=== PATIENT | male | born 1935 | race Caucasian/White ===

== ENCOUNTER 2017-12-23 19:21 | Observation (INO) | payer MEDICARE, OTHER ==
[2017-12-23 20:07] LABS: #Eosinphils 0.3 thou/uL (0.0-0.7); #Lymphocytes 1.8 thou/uL (1.20-3.40); #Monocytes 0.8 thou/uL (0.11-0.59); #Neutrophils 5.2 thou/uL (1.40-6.50); %Basophils 0.5 % (0.0-1.0); %Eosinophils 3.6 % (0.0-10.0); %Lymphocytes 22.5 % (21.0-51.0); %Monocytes 9.4 % (0.0-10.0); %Neutrophils 64.1 % (42.0-75.0); Mean Corpuscular HGB CONC 34.2 g/dL (32.0-36.0); Mean Corpuscular Hemoglobin 30.6 pg (27.0-31.0); Mean Corpuscular Volume 89.4 fl (80.0-94.0); Mean Platelet Volume 6.9 fL (7.4-10.4); Platelet Count 172 thou/uL (130-400); RBC Distribution Width 12.3 % (11.5-14.5); Red Blood Cell (RBC) Count 4.59 mill/uL (4.70-6.10); White Blood Cell (WBC) Count 8.1 thou/uL (4.8-10.8)
[2017-12-23 20:35] LABS: Anion Gap 13 mmol/L (10-20); BUN (Urea Nitrogen) 10 mg/dL (8.4-25.7); Calc. Creatinine Clearance 0 mL/min (70-130); Calcium 9.1 mg/dL (7.8-10.44); Carbon Dioxide 25 mmol/L (23-31); Chloride 100 mmol/L (98-107); Estimated GFR-MDRD 74; Glucose 114 mg/dL (83-110); Potassium 3.6 mmol/L (3.5-5.1); Sodium 134 mmol/L (136-145)
[2017-12-23 20:42] LABS: CKMB 1.3 ng/mL (0-6.6); Troponin I Less than 0.010 ng/mL (< 0.028)
[2017-12-23 22:18] LABS: Bilirubin Negative (Negative); Blood, Urine Negative (Negative); Clarity CLEAR (Clear); Glucose, Urine (Dipstick) Negative (Negative); Leukocyte Negative (Negative); Nitrite Negative (Negative); Protein, Urine (Dipstick) Negative (Neg-Trace); Specific Gravity, Urine 1.008 (1.002-1.036); Urobilinogen 0.2 mg/dL (0.2-1.0)
[2017-12-23 23:44] LABS: Troponin I Less than 0.010 ng/mL (< 0.028)
[2017-12-24 02:00] VITALS: BMI 20.8
[2017-12-24] MEDS ORDERED: Bisacodyl 5 MG TAB PO PRN (02:00)
[2017-12-24] MEDS ORDERED: Acetaminophen 325 MG TAB PO PRN (02:00)
[2017-12-24] MEDS ORDERED: Sodium Chloride 0.9% 1,000 ML IV SCH (02:15)
[2017-12-24 02:28] LABS: Troponin I Less than 0.010 ng/mL (< 0.028)
--- NOTE | 2017-12-24 02:34 | HP ---
PRIMARY CARE PROVIDER: Unknown. CHIEF COMPLAINT: Lightheadedness. HISTORY OF PRESENT ILLNESS: Mr. Brothers is a pleasant 82-year-old gentleman who was seen at [facility] on 12/24/2017. He reports that over the last couple of days, he has been feeling lightheaded. He reports that it is mainly when he is trying to walk. He feels like he is about to fall. He feels dizzy. He denies an y chest pain. He denies any nausea, vomiting, diarrhea, or abdominal pain. He used to be on thyroid replacement therapy, but stopped taking that medication for a few weeks because of cost factor. REVIEW OF SYSTEMS: All other systems reviewed and found to be negative. PAST MEDICAL HISTORY: Hypothyroidism; hypervitaminosis D; osteoporosis; suspected Alzheimer disease; bradycardia, status post permanent pacemaker; hypertension; and dyslipidemia. PAST SURGICAL HISTORY: Permanent pacemaker placement. FAMILY HISTORY: Father at age 75 of an accident. Mother of complications of multiple scle rosis in her 60s. CODE STATUS: I discussed his code status. He is FULL CODE. Surrogate decision maker is his friend, Jagdish Lindsay, in [place]. SOCIAL HISTORY: He denies tobacco use, alcohol use, or recreational drug use. 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 ALLERGIES: No known drug allergies. CURRENT MEDICATIONS: He has not been taking his thyroid replacement therapy for several weeks. He r eports that he does not take any other medications at home. PHYSICAL EXAMINATION: GENERAL: Mr. Brothers is awake and alert, not in acute distress. VITAL SIGNS: Blood pressure is 159/90, pulse is 63. He is breathing at a rate of 14 and saturating 98% on room air. He is afebrile. EYES: No scleral icterus. No conjunctival pallor. ENT: Dry mucosal membranes. No oropharyngeal erythema or exudates. NECK: Supple, nontender, normal range of movement. Trachea is midline. RESPIRATORY: Accessory muscles of breathing are not active. Chest wall movements are symmetric bila terally. LUNGS: Clear to auscultation without wheeze, rhonchi, or crepitations. CARDIOVASCULAR: S1 and S2 are heard, regular. Peripheral pulses palpable. No carotid bruit. No pe ricardial rub. ABDOMEN: Soft, nontender. Bowel sounds heard. No hepatomegaly, no splenomegaly. MUSCULOSKELETAL: Power is 5/5 in all 4 extremities. SKIN: No rashes or subcutaneous nodules. LYMPHATIC: No cervical lymphadenopathy. PSYCHIATRIC: Normal mood, normal affect. The patient is oriented to person, place, and time. LABORATORY DATA: Mr. Brothers's labs and investigations were reviewed. Electrocardiogram showed atri al paced rhythm, no ST changes to suggest an acute coronary syndrome. He has normal urinalysis, norm al white count, normal hemoglobin, normal platelet count, decreased sodium of 134, normal potassium, normal creatinine, normal troponin I x2, and a normal TSH. ASSESSMENT AND PLAN: Mr. Brothers is a pleasant 82-year-old gentleman who was seen at [facility] on 12/24/2017. His problem list includes: 1. Presyncope: Etiology is unclear. We will check CT brain to rule out any intracranial causes. W e will monitor him on telemetry. We will also check orthostatic vitals. We will have his permanent pacemaker interrogated to rule out any arrhythmias. 2. Hypothyroidism: We will resume his thyroid medication once dose is clarified. The patient repor ts that he has been noncompliant for several weeks. He does have a normal TSH at this time. 3. Hypertension: Monitor vital signs, titrate antihypertensives as needed. Resume home medications once clarified. 4. Dyslipidemia: He has a history of dyslipidemia. However, he reportedly had myalgias with statin s. Dyslipidemia to be managed as outpatient. LEVEL OF RISK: Moderate. LEVEL OF COMPLEXITY: Moderate.
[2017-12-24 04:26] LABS: #Basophils 0.1 thou/uL (0.0-0.2); #Eosinphils 0.5 thou/uL (0.0-0.7); #Lymphocytes 2.7 thou/uL (1.20-3.40); #Monocytes 0.9 thou/uL (0.11-0.59); #Neutrophils 4.9 thou/uL (1.40-6.50); %Basophils 0.6 % (0.0-1.0); %Eosinophils 5.4 % (0.0-10.0); %Lymphocytes 29.5 % (21.0-51.0); %Neutrophils 54.4 % (42.0-75.0); Hemoglobin 14.5 g/dL (14.0-18.0); Mean Corpuscular HGB CONC 33.9 g/dL (32.0-36.0); Mean Corpuscular Hemoglobin 30.5 pg (27.0-31.0); Mean Corpuscular Volume 89.7 fl (80.0-94.0); Mean Platelet Volume 7.3 fL (7.4-10.4); Platelet Count 178 thou/uL (130-400); RBC Distribution Width 12.3 % (11.5-14.5); Red Blood Cell (RBC) Count 4.76 mill/uL (4.70-6.10); White Blood Cell (WBC) Count 9.1 thou/uL (4.8-10.8)
[2017-12-24 04:29] LABS: Anion Gap 9 mmol/L (10-20); BUN (Urea Nitrogen) 9 mg/dL (8.4-25.7); Calc. Creatinine Clearance 65 mL/min (70-130); Calcium 9.2 mg/dL (7.8-10.44); Carbon Dioxide 28 mmol/L (23-31); Chloride 103 mmol/L (98-107); Estimated GFR-MDRD 81; Glucose 91 mg/dL (83-110); Potassium 3.7 mmol/L (3.5-5.1); Sodium 136 mmol/L (136-145)
[2017-12-24] MEDS ORDERED: Enoxaparin Sodium 40 MG/0.4 ML SYRINGE SC SCH (09:00)
[2017-12-24] MEDS ORDERED: Prevnar 13-Val Conj/PF 0.5 ML SYRINGE IM ONE (09:00)
--- NOTE | 2017-12-24 10:08 | CT ---
CT OF THE BRAIN WITHOUT CONTRAST: COMPARISON: 04/20/16. HISTORY: Dizziness and unsteadiness. Presyncope. TECHNIQUE: Multiple contiguous axial images were obtained in a CT of the brain without contrast. FINDINGS: There are a few scattered hypodensities in the subcortical and periventricular white matter, likely s econdary to small-vessel ischemic disease. No large confluent infarction is seen. There is no evide nce of hydrocephalus, intracranial hemorrhage, or extraaxial fluid collection. The calvarium and overlying soft tissues are unremarkable. The visualized paranasal sinuses and mast oid air cells are well aerated. IMPRESSION: No evidence of acute intracranial abnormality. POS: [facility]
--- NOTE | 2017-12-24 12:15 | PDOC.EVN ---
Event Note - Event Note Event Note: Iris seen and examined. Admitted earlier this morning for Near syncope. Awaiting AICD interrogation. Currently feels fine with no complaints. Will continue to follow.
[2017-12-24 16:52] VITALS: BP 121/70; TEMP 98.3
--- NOTE | 2017-12-28 19:16 | DIS ---
DATE OF ADMISSION: 12/24/2017 DATE OF DISCHARGE: 12/24/2017 DISCHARGE DIAGNOSIS: Orthostatic hypotension, near syncope. HISTORY OF PRESENT ILLNESS/HOSPITAL COURSE: Mr. Zev Lyons is an 82-year-old male with a past m edical history of hypothyroidism, hypervitaminosis D, osteoporosis, Alzheimer's dementia, bradycardia , status post pacemaker placement, hypertension, and dyslipidemia, who presented to the emergency amelia from his assisted living facility with complaints of being lightheaded and difficulty trying to wal k due to the lightheadedness. He reports almost falling down, but he denied chest pain, nausea, vomi ting, diarrhea, abdominal pain. He used to be on hypothyroidism medication, but stopped taking the m edication a few weeks before due to cost prohibitive. At emergency room, he was found to be orthosta tic and started on IV fluids. While in hospital, his O2 sat was rechecked and was negative. His pac emaker was interrogated with no abnormalities found. He seemed to be almost back to his baseline and PT, OT was called to evaluate the patient and we will arrange for outpatient therapy sessions. Ther e were some concerns about his possible home living conditions. I believe the patient take care of h imself so calls were made by the manager case management to his facility and the whole living situation was expl ained to us. It was therefore deemed to be inpatient as a benefit to see if he can continue to live by himself to give him a trial of independent living and if he fails this, then he might need to be p laced in a long-term facility for proper assessment. The patient was discharged without incident. DISCHARGE MEDICATIONS: Hydroxyzine 10 mg 4 times daily as needed for itching, loratadine 10 mg daily , levothyroxine sodium 50 mcg daily, Carvedilol 12.5 mg oral twice a day, amlodipine 5 mg daily, and amiodarone 200 mg twice a day. PHYSICAL EXAMINATION: GENERAL: He was examined on the same day as discharge for details, see today's progress notes: WBC 9.1, hemoglobin 14.5, platelet count is 178. Sodium 136, potassium 3.7, chloride 103, carbon dioxide 28, anion gap 9, BUN 9, creatinine 0.9, glucose 91, calcium 9.2. IMAGING: Brain CT without contrast showed no evidence of intracranial abnormality. CONSULTS: None. CONDITION AT DISCHARGE: Stable and improved. PROCEDURES: None. DIET: Heart healthy. CARE. Goal to follow up with his primary care physician within 1 week of discharge. ACTIVITY: To resume as tolerated and as directed by PT/OT. Discharge time 65 minutes including chart review and documentation.
== END 2017-12-24 18:09 | disposition home health service (06) ==
LOC: ERS 19:21 → 2SW 21:55
PROVIDERS: ADMIT Internal Medicine; ATTEND Internal Medicine
DX: I95.1 Orthostatic hypotension (principal); E03.9 Hypothyroidism, unspecified; M81.0 Age-related osteoporosis without current pathological fracture; E78.5 Hyperlipidemia, unspecified; I10 Essential (primary) hypertension; Z79.899 Other long term (current) drug therapy
CPT/HCPCS: 70450; 80048 ×2; 81003; 82553; 84443; 84484 ×3; 85025 ×2; 93005; 96360; 96361; 96372; 97139 ×2; 99285; G0378; G8978; G8979; G8980; 36415; J1650

== ENCOUNTER 2017-12-27 14:04 | Emergency (ER) | payer MEDICARE ==
[2017-12-27] MEDS ORDERED: Acetaminophen 500 MG TAB ONE (14:29)
[2017-12-27 14:30] LABS: #Basophils 0.1 thou/uL (0.0-0.2); #Eosinphils 0.3 thou/uL (0.0-0.7); #Lymphocytes 1.6 thou/uL (1.20-3.40); #Monocytes 0.9 thou/uL (0.11-0.59); #Neutrophils 4.9 thou/uL (1.40-6.50); %Basophils 0.7 % (0.0-1.0); %Eosinophils 3.3 % (0.0-10.0); %Lymphocytes 20.5 % (21.0-51.0); %Monocytes 11.6 % (0.0-10.0); %Neutrophils 63.9 % (42.0-75.0); Hemoglobin 14.9 g/dL (14.0-18.0); Mean Corpuscular HGB CONC 33.7 g/dL (32.0-36.0); Mean Corpuscular Hemoglobin 30.3 pg (27.0-31.0); Mean Corpuscular Volume 89.8 fl (80.0-94.0); Mean Platelet Volume 6.4 fL (7.4-10.4); Platelet Count 181 thou/uL (130-400); RBC Distribution Width 12.3 % (11.5-14.5); Red Blood Cell (RBC) Count 4.94 mill/uL (4.70-6.10); White Blood Cell (WBC) Count 7.7 thou/uL (4.8-10.8)
[2017-12-27 14:56] LABS: ALT (SGPT) 13 U/L (8-55); AST (SGOT) 13 U/L (5-34); Albumin 4.4 g/dL (3.4-4.8); Alkaline Phosphatase 64 U/L (40-150); Anion Gap 11 mmol/L (10-20); BUN (Urea Nitrogen) 14 mg/dL (8.4-25.7); Bilirubin, Total 1.2 mg/dL (0.2-1.2); CK (CPK) 77 U/L (30-200); Calc. Creatinine Clearance 0 mL/min (70-130); Calcium 9.5 mg/dL (7.8-10.44); Carbon Dioxide 28 mmol/L (23-31); Chloride 101 mmol/L (98-107); Estimated GFR-MDRD 61; Globulin 2.4 g/dL (2.4-3.5); Glucose 73 mg/dL (83-110); Potassium 3.8 mmol/L (3.5-5.1); Protein, Total 6.8 g/dL (5.8-8.1); Sodium 136 mmol/L (136-145)
[2017-12-27 15:01] LABS: CKMB 2.7 ng/mL (0-6.6); Troponin I Less than 0.010 ng/mL (< 0.028)
--- NOTE | 2017-12-27 15:08 | CT ---
CT BRAIN WITHOUT CONTRAST: HISTORY: Weakness, dizziness. FINDINGS: Comparison is made with the exam of 12/24/17. Changes of cortical atrophy and chronic small-vessel ischemic disease are again seen. The ventricula r size is stable and the basilar cisterns patent. No evidence of acute infarct, hemorrhage, midline shift, or abnormal extraaxial fluid collections noted. The bony calvarium is intact. There is mucos al disease in the paranasal sinuses. IMPRESSION: Stable exam. No CT evidence of acute intracranial process. POS: [facility]
--- NOTE | 2017-12-27 15:10 | RAD ---
AP PELVIS RADIOGRAPH: DATE: 12/27/17. HISTORY: Weakness. FINDINGS: There is osteopenia. Degenerative changes are seen in the lower lumbar spine. No fracture is seen. There is no dislocation or other osseous abnormality appreciated. IMPRESSION: No acute osseous abnormality appreciated. POS: [facility]
[2017-12-27 15:18] LABS: Bilirubin Negative (Negative); Blood, Urine Negative (Negative); Clarity CLEAR (Clear); Glucose, Urine (Dipstick) Negative (Negative); Leukocyte Negative (Negative); Nitrite Negative (Negative); Protein, Urine (Dipstick) Negative (Neg-Trace); Specific Gravity, Urine 1.012 (1.002-1.036); pH, Urine 6.5 (5.0-9.0)
== END 2017-12-27 17:15 | disposition home or self-care (01) ==
LOC: ERS 14:04
DX: R53.1 Weakness (principal); E05.90 Thyrotoxicosis, unspecified without thyrotoxic crisis or storm; I48.91 Unspecified atrial fibrillation
CPT/HCPCS: 36415; 70450; 72170; 80053; 81003; 82553; 83880; 84484; 85025; 96360

== ENCOUNTER 2017-12-28 09:26 | Emergency (ER) | payer MEDICARE | END 2017-12-28 14:51 | LOC: ERS 09:26 | DX: F03.90 Unspecified dementia, unspecified severity, without behavioral disturbance, psychotic disturbance, mood disturbance, and anxiety (principal); E05.90 Thyrotoxicosis, unspecified without thyrotoxic crisis or storm | CPT/HCPCS: 93005 ==

== ENCOUNTER 2018-01-16 18:55 | Emergency (ER) | payer MEDICARE ==
[2018-01-16 19:48] LABS: Bilirubin Negative (Negative); Blood, Urine Trace (Negative); Clarity CLEAR (Clear); Glucose, Urine (Dipstick) Negative (Negative); Leukocyte Negative (Negative); Nitrite Negative (Negative); Protein, Urine (Dipstick) Negative (Neg-Trace); Specific Gravity, Urine 1.006 (1.002-1.036)
[2018-01-16 19:50] LABS: Bacteria/HPF None Seen HPF (None Seen); Hyaline Casts/LPF 0-3 HYALINE CAST LPF (0-3 Hyaline); RBC/HPF 0-3 HPF (0-3); Squamous Epithelial None Seen HPF (0-3); WBC/HPF None Seen HPF (0-3)
[2018-01-16 20:20] LABS: #Basophils 0.1 thou/uL (0.0-0.2); #Eosinphils 0.4 thou/uL (0.0-0.7); #Lymphocytes 2.3 thou/uL (1.20-3.40); #Monocytes 1.1 thou/uL (0.11-0.59); #Neutrophils 6.6 thou/uL (1.40-6.50); %Basophils 0.8 % (0.0-1.0); %Eosinophils 3.7 % (0.0-10.0); %Lymphocytes 21.7 % (21.0-51.0); %Monocytes 10.7 % (0.0-10.0); %Neutrophils 63.1 % (42.0-75.0); Hemoglobin 14.9 g/dL (14.0-18.0); Mean Corpuscular HGB CONC 34.1 g/dL (32.0-36.0); Mean Corpuscular Hemoglobin 30.7 pg (27.0-31.0); Mean Corpuscular Volume 90.1 fL (78.0-98.0); Mean Platelet Volume 6.7 fL (7.4-10.4); Platelet Count 188 thou/uL (130-400); RBC Distribution Width 12.1 % (11.5-14.5); Red Blood Cell (RBC) Count 4.83 mill/uL (4.70-6.10); White Blood Cell (WBC) Count 10.4 thou/uL (4.8-10.8)
[2018-01-16] MEDS ORDERED: Meclizine HCl 25 MG TAB ONE (20:26)
[2018-01-16 20:45] LABS: CKMB 1.7 ng/mL (0-6.6); Troponin I Less than 0.010 ng/mL (< 0.028)
== END 2018-01-16 22:00 | disposition home or self-care (01) ==
LOC: ERS 18:55
DX: R42 Dizziness and giddiness (principal); I48.91 Unspecified atrial fibrillation; E05.90 Thyrotoxicosis, unspecified without thyrotoxic crisis or storm
CPT/HCPCS: 36415; 81001; 82550; 82553; 84484; 85025; 93005

== ENCOUNTER 2018-01-26 13:36 | Emergency (ER) | payer MEDICARE ==
[2018-01-26 14:07] LABS: #Basophils 0.1 thou/uL (0.0-0.2); #Eosinphils 0.3 thou/uL (0.0-0.7); #Lymphocytes 1.7 thou/uL (1.20-3.40); #Monocytes 0.8 thou/uL (0.11-0.59); #Neutrophils 5.6 thou/uL (1.40-6.50); %Basophils 0.7 % (0.0-1.0); %Eosinophils 3.6 % (0.0-10.0); %Lymphocytes 19.7 % (21.0-51.0); %Monocytes 9.5 % (0.0-10.0); %Neutrophils 66.5 % (42.0-75.0); Hemoglobin 14.7 g/dL (14.0-18.0); Mean Corpuscular HGB CONC 33.9 g/dL (32.0-36.0); Mean Corpuscular Hemoglobin 30.5 pg (27.0-31.0); Mean Corpuscular Volume 89.9 fL (78.0-98.0); Mean Platelet Volume 6.8 fL (7.4-10.4); Platelet Count 181 thou/uL (130-400); RBC Distribution Width 12.3 % (11.5-14.5); Red Blood Cell (RBC) Count 4.82 mill/uL (4.70-6.10); White Blood Cell (WBC) Count 8.4 thou/uL (4.8-10.8)
--- NOTE | 2018-01-26 14:13 | RAD ---
AP CHEST: History: Dizziness, 82-year-old male. Date: 01-26-18 Comparison: 08-03-16 FINDINGS: AP chest demonstrates a dual-lead intracardiac pacing device. The lungs are well aerated. No evidence of active intrathoracic disease seen. No evidence of effusions, pneumonia, or pneumothorax seen. IMPRESSION: Unremarkable AP chest. POS: [facility]
[2018-01-26 14:29] LABS: ALT (SGPT) 14 U/L (8-55); AST (SGOT) 14 U/L (5-34); Albumin 4.5 g/dL (3.4-4.8); Alkaline Phosphatase 69 U/L (40-150); Anion Gap 10 mmol/L (10-20); BUN (Urea Nitrogen) 10 mg/dL (8.4-25.7); Bilirubin, Total 1.1 mg/dL (0.2-1.2); CK (CPK) 62 U/L (30-200); Calc. Creatinine Clearance 0 mL/min (70-130); Calcium 9.5 mg/dL (7.8-10.44); Carbon Dioxide 29 mmol/L (23-31); Chloride 100 mmol/L (98-107); Estimated GFR-MDRD 74; Globulin 2.4 g/dL (2.4-3.5); Glucose 76 mg/dL (83-110); Lipase 60 U/L (8-78); Potassium 3.8 mmol/L (3.5-5.1); Protein, Total 6.9 g/dL (5.8-8.1); Sodium 135 mmol/L (136-145)
[2018-01-26 14:33] LABS: Troponin I Less than 0.010 ng/mL (< 0.028)
[2018-01-26] MEDS ORDERED: Meclizine HCl 25 MG TAB ONE (14:52)
== END 2018-01-26 15:26 | disposition home or self-care (01) ==
LOC: ERS 13:36
DX: R42 Dizziness and giddiness (principal); E05.90 Thyrotoxicosis, unspecified without thyrotoxic crisis or storm; I48.91 Unspecified atrial fibrillation
CPT/HCPCS: 71045; 80053; 82550; 82553; 83690; 83880; 84443; 84484; 85025; 93005

== ENCOUNTER 2018-01-30 21:32 | Emergency (ER) | payer MEDICARE ==
[2018-01-30 22:09] LABS: #Eosinphils 0.3 thou/uL (0.0-0.7); #Monocytes 0.8 thou/uL (0.11-0.59); #Neutrophils 5.6 thou/uL (1.40-6.50); %Basophils 0.5 % (0.0-1.0); %Eosinophils 3.5 % (0.0-10.0); %Lymphocytes 22.9 % (21.0-51.0); %Monocytes 8.9 % (0.0-10.0); %Neutrophils 64.2 % (42.0-75.0); Hemoglobin 13.7 g/dL (14.0-18.0); Mean Corpuscular HGB CONC 34.3 g/dL (32.0-36.0); Mean Corpuscular Hemoglobin 30.7 pg (27.0-31.0); Mean Corpuscular Volume 89.6 fL (78.0-98.0); Mean Platelet Volume 6.5 fL (7.4-10.4); Platelet Count 180 thou/uL (130-400); RBC Distribution Width 12.2 % (11.5-14.5); Red Blood Cell (RBC) Count 4.47 mill/uL (4.70-6.10); White Blood Cell (WBC) Count 8.8 thou/uL (4.8-10.8)
[2018-01-30 22:28] LABS: ALT (SGPT) 12 U/L (8-55); AST (SGOT) 13 U/L (5-34); Albumin 4.2 g/dL (3.4-4.8); Alkaline Phosphatase 62 U/L (40-150); Anion Gap 10 mmol/L (10-20); BUN (Urea Nitrogen) 12 mg/dL (8.4-25.7); Bilirubin, Total 1.1 mg/dL (0.2-1.2); Calc. Creatinine Clearance 0 mL/min (70-130); Calcium 9.2 mg/dL (7.8-10.44); Carbon Dioxide 25 mmol/L (23-31); Chloride 102 mmol/L (98-107); Estimated GFR-MDRD 77; Globulin 2.2 g/dL (2.4-3.5); Glucose 91 mg/dL (83-110); Potassium 3.7 mmol/L (3.5-5.1); Protein, Total 6.4 g/dL (5.8-8.1); Sodium 133 mmol/L (136-145)
[2018-01-30 23:52] LABS: Bilirubin Negative (Negative); Blood, Urine Negative (Negative); Clarity CLEAR (Clear); Glucose, Urine (Dipstick) Negative (Negative); Leukocyte Trace (Negative); Nitrite Negative (Negative); Protein, Urine (Dipstick) Negative (Neg-Trace); Specific Gravity, Urine 1.004 (1.002-1.036); Urobilinogen 0.2 mg/dL (0.2-1.0); pH, Urine 7.5 (5.0-9.0)
[2018-01-30 23:55] LABS: Bacteria/HPF None Seen HPF (None Seen); Hyaline Casts/LPF 0-3 HYALINE CAST LPF (0-3 Hyaline); RBC/HPF None Seen HPF (0-3); Squamous Epithelial None Seen HPF (0-3); WBC/HPF None Seen HPF (0-3)
[2018-01-31] MEDS ORDERED: Meclizine HCl 25 MG TAB ONE (03:08)
== END 2018-01-31 01:31 | disposition home or self-care (01) ==
LOC: ERS 21:32
DX: H61.23 Impacted cerumen, bilateral (principal)
CPT/HCPCS: 36415; 69210; 80053; 81003; 81015; 85025; 93005

== ENCOUNTER 2018-02-15 19:41 | Emergency (ER) | payer MEDICARE ==
[2018-02-15 20:39] LABS: #Basophils 0.1 thou/uL (0.0-0.2); #Eosinphils 0.3 thou/uL (0.0-0.7); #Lymphocytes 1.6 thou/uL (1.20-3.40); #Neutrophils 5.4 thou/uL (1.40-6.50); %Basophils 0.7 % (0.0-1.0); %Eosinophils 3.2 % (0.0-10.0); %Lymphocytes 19.3 % (21.0-51.0); %Monocytes 11.7 % (0.0-10.0); %Neutrophils 65.1 % (42.0-75.0); Hemoglobin 13.6 g/dL (14.0-18.0); Mean Corpuscular HGB CONC 34.7 g/dL (32.0-36.0); Mean Corpuscular Hemoglobin 31.6 pg (27.0-31.0); Mean Corpuscular Volume 91.2 fL (78.0-98.0); Mean Platelet Volume 6.6 fL (7.4-10.4); Platelet Count 175 thou/uL (130-400); RBC Distribution Width 12.2 % (11.5-14.5); Red Blood Cell (RBC) Count 4.29 mill/uL (4.70-6.10); White Blood Cell (WBC) Count 8.3 thou/uL (4.8-10.8)
[2018-02-15 20:39] LABS: Bilirubin Negative (Negative); Blood, Urine Negative (Negative); Clarity CLEAR (Clear); Glucose, Urine (Dipstick) Negative (Negative); Leukocyte Negative (Negative); Nitrite Negative (Negative); Protein, Urine (Dipstick) Negative (Neg-Trace); Specific Gravity, Urine 1.006 (1.002-1.036); pH, Urine 5.5 (5.0-9.0)
[2018-02-15 20:57] LABS: ALT (SGPT) 17 U/L (8-55); AST (SGOT) 16 U/L (5-34); Alkaline Phosphatase 61 U/L (40-150); Anion Gap 14 mmol/L (10-20); BUN (Urea Nitrogen) 7 mg/dL (8.4-25.7); Bilirubin, Total 0.9 mg/dL (0.2-1.2); Calc. Creatinine Clearance 0 mL/min (70-130); Calcium 8.8 mg/dL (7.8-10.44); Carbon Dioxide 23 mmol/L (23-31); Chloride 99 mmol/L (98-107); Estimated GFR-MDRD 77; Glucose 102 mg/dL (83-110); Potassium 3.8 mmol/L (3.5-5.1); Sodium 132 mmol/L (136-145)
--- NOTE | 2018-02-26 12:23 | EKG ---
Test Reason : Blood Pressure : / mmHG Vent. Rate : 063 BPM Atrial Rate : 063 BPM P-R Int : 000 ms QRS Dur : 148 ms QT Int : 428 ms P-R-T Axes : 000 001 041 degrees QTc Int : 437 ms Electronic atrial pacemaker Right bundle branch block Abnormal ECG Confirmed by GEO PAIGE ([id number]), newspaper editor managing ISABEL RUIZ ([id number]) on 02/26/2018 12:22:44 PM Referred By: Confirmed By:GEO PAIGE
== END 2018-02-16 01:10 | disposition home or self-care (01) ==
LOC: ERS 19:41
DX: R42 Dizziness and giddiness (principal); I48.91 Unspecified atrial fibrillation; Z79.899 Other long term (current) drug therapy
CPT/HCPCS: 36415; 36416; 80053; 81003; 85025; 93005

== ENCOUNTER 2018-04-26 20:28 | Inpatient (IN) | payer MEDICARE ==
[~2018-04-26 20:28] MED LIST: ISOVUE-370 76%-LOCM 1 ML ONE; Iopamidol 370 76% 50 ML VIAL FS ONE
[2018-04-26 20:58] LABS: Bilirubin Negative (Negative); Blood, Urine Negative (Negative); Clarity CLEAR (Clear); Glucose, Urine (Dipstick) Negative (Negative); Leukocyte Negative (Negative); Nitrite Negative (Negative); Protein, Urine (Dipstick) Negative (Neg-Trace); Specific Gravity, Urine 1.003 (1.002-1.036); Urobilinogen 0.2 mg/dL (0.2-1.0); pH, Urine 7.5 (5.0-9.0)
[2018-04-26 21:06] LABS: #Basophils 0.1 thou/uL (0.0-0.2); #Eosinphils 0.6 thou/uL (0.0-0.7); #Lymphocytes 2.1 thou/uL (1.20-3.40); #Neutrophils 6.3 thou/uL (1.40-6.50); %Basophils 0.5 % (0.0-1.0); %Eosinophils 5.6 % (0.0-10.0); %Lymphocytes 20.8 % (21.0-51.0); %Monocytes 9.9 % (0.0-10.0); %Neutrophils 63.3 % (42.0-75.0); Hemoglobin 15.7 g/dL (14.0-18.0); Mean Corpuscular HGB CONC 31.9 g/dL (32.0-36.0); Mean Corpuscular Hemoglobin 29.3 pg (27.0-31.0); Mean Corpuscular Volume 91.8 fL (78.0-98.0); Mean Platelet Volume 7.2 fL (7.4-10.4); Platelet Count 210 thou/uL (130-400); RBC Distribution Width 12.4 % (11.5-14.5); Red Blood Cell (RBC) Count 5.37 mill/uL (4.70-6.10); White Blood Cell (WBC) Count 9.9 thou/uL (4.8-10.8)
[2018-04-26] MEDS ORDERED: Ondansetron PF 4 MG/2 ML Vial ONE (21:10)
[2018-04-26] MEDS ORDERED: Morphine 4 MG/ML VIAL ONE (21:10)
[2018-04-26 21:32] LABS: CKMB 2.9 ng/mL (0-6.6); Troponin I Less than 0.010 ng/mL (< 0.028)
[2018-04-27 00:28] LABS: ALT (SGPT) 46 U/L (8-55); AST (SGOT) 43 U/L (5-34); Albumin 4.2 g/dL (3.4-4.8); Alkaline Phosphatase 81 U/L (40-150); Anion Gap 14 mmol/L (10-20); BUN (Urea Nitrogen) 8 mg/dL (8.4-25.7); Bilirubin, Total 0.9 mg/dL (0.2-1.2); Calc. Creatinine Clearance 0 mL/min (70-130); Calcium 9.4 mg/dL (7.8-10.44); Carbon Dioxide 26 mmol/L (23-31); Chloride 100 mmol/L (98-107); Estimated GFR-MDRD 62; Globulin 3.4 g/dL (2.4-3.5); Glucose 114 mg/dL (83-110); Potassium 5.5 mmol/L (3.5-5.1); Protein, Total 7.6 g/dL (5.8-8.1); Sodium 134 mmol/L (136-145)
[2018-04-27 05:44] VITALS: BMI 22.3
[2018-04-27] MEDS ORDERED: Morphine 4 MG/ML VIAL SLOW IVP PRN (05:53)
[2018-04-27] MEDS ORDERED: Sodium Chloride 0.9% 1,000 ML IV SCH (05:54)
[2018-04-27] MEDS ORDERED: Acetaminophen 325 MG TAB PO PRN (05:54)
[2018-04-27] MEDS ORDERED: Ondansetron ODT 4 MG TAB SL PRN (05:54)
[2018-04-27] MEDS ORDERED: Ondansetron PF 4 MG/2 ML Vial IVP PRN (05:54)
[2018-04-27] MEDS ORDERED: Prevnar 13-Val Conj/PF 0.5 ML SYRINGE IM ONE (08:00)
[2018-04-27] MEDS: Tamsulosin HCl 0.4 MG CAP PO SCH (08:26)
--- NOTE | 2018-04-27 09:35 | CT ---
PRELIMINARY REPORT/[facility]/EMERGENTY AFTER-HOURS PROCEDURE CT Abdomen and Pelvis With Intravenous Contrast EXAM DATE/TIME: 04/27/2018 12:40 AM CLINICAL HISTORY: 82 years old, male; Pain; Abdominal pain; Generalized; Patient HX: M82 presents to ed from assisted iving facility with C/O abdominal pain, onset approximately a week ago, worsening today TECHNIQUE: Axial computed tomography images of the abdomen and pelvis with intravenous contrast. Coronal reformatted images were created and reviewed. COMPARISON: No relevant prior studies available. FINDINGS: Tubes, catheters and devices: A pacemaker is present. Lower thorax: No acute findings. ABDOMEN: Liver: Fatty infiltration of the liver. No mass. Gallbladder and bile ducts: Normal. No calcified stones. No ductal dilation. Pancreas: Normal. No ductal dilation. Spleen: Normal. No splenomegaly. Adrenals: Normal. No mass. Kidneys and ureters: Normal. No hydronephrosis. Stomach and bowel: There is a right inguinal hernia containing distal small bowel loops and the ileoc ecal junction, with proximal dilation suggestive of obstruction. Some fluid fluid is also noted withi n the hernia sac. There is diverticular disease of the colon, without evidence of acute diverticulitis. No perforation, or abscess. No signs or history of bleeding provided. Appendix: The appendix is not seen and may also be compressed within the hernia sac. PELVIS: Bladder: Mild bladder wall thickening. Reproductive: The prostate gland is enlarged. ABDOMEN and PELVIS: Intraperitoneal space: No free air. Free fluid noted within the right inguinal hernia sac but none ot herwise. Bones/joints: No acute fracture. No dislocation. Soft tissues: There is a small fat-containing umbilical hernia. Vasculature: Normal. No abdominal aortic aneurysm. Lymph nodes: Normal. No enlarged lymph nodes. IMPRESSION: Small bowel obstruction related to possibly incarcerated right inguinal hernia containing the ileocecal junction and distal small bowel. Thank you for allowing us to participate in the care of your patient. Dictated and Authenticated by: Chana Moore MD 04/27/2018 1:13 AM Central Time ([place] & [place]) FINAL REPORT CT ABDOMEN WITH CONTRAST CT PELVIS WITH CONTRAST: Date: 04/26/18 HISTORY: Hernia. Abdominal pain. COMPARISON: None. FINDINGS: This report is in agreement with the preliminary report by Kimo. There is hepatic steatosis. There is a right inguinal hernia containing distal small bowel loop, ileocecal junction, and cecum through th e hernia defect. There is associated bowel obstruction. There is suggestion of possible appendix in t he hernia sac. There is evidence of adjacent fluid. Diverticulosis is noted. No evidence of diverticu litis in the left hemicolon. There is prostatic enlargement with mass effect upon the urinary bladder . Bladder mucosa is mildly thickened. IMPRESSION: Small bowel obstruction with bowel incarceration in a right inguinal hernia. Ileocecal junction, dist al small bowel, cecum, and appendix appear to be within the right hernia sac. There is adjacent infla mmatory change. POS: [facility]
[2018-04-27] MEDS ORDERED: Bupivacaine/Epinephrine 0.25% 30 ML VIAL ONE (12:03)
--- NOTE | 2018-04-27 12:28 | HP ---
CHIEF COMPLAINT: Right inguinal hernia. HISTORY OF PRESENT ILLNESS: The patient is an 82-year-old white male. He presented to the emergency room late last night complaining of generalized abdominal pain. He was evaluated initially with lab oratory studies and a CBC was normal with a white blood cell count of 9.9, hemoglobin 15.7. His chem istry profile was more or less normal. He had slight elevation of potassium of 5.5, but he has idris l renal function with a creatinine of 1.1. Liver function tests are essentially normal. His AST is slightly elevated at 43 and otherwise all of his labs are normal. He subsequently was evaluated with a CT scan. This revealed a large right inguinal hernia with cecum and ileum present within the omar ia sac. It was reported by the emergency room provider that the hernia was not reducible after a cou ple of attempts. The patient apparently was not significantly aware of the hernia. The patient had no significant abdominal tenderness and had not vomited. He was therefore admitted with plans of pro ceeding early this morning. Upon my arrival, the hernia had clearly reduced and he was resting comfo rtably in bed. He can give no meaningful history regarding the presence of the hernia. He has some degree of memory loss. He is unable to tell me who his primary care physician is or when he last saw him. The patient does remember having seen Dr. Benjamin in the past (when I asked him abo ut him in specific), but he is not certain who he is seeing now. He also notes that he had a pacemak er placed, but he has not seen a tile conduit layer. PAST MEDICAL HISTORY: Notes a history of atrial fibrillation and he believes this is why the pacemak er was placed. He states that he no longer has atrial fibrillation. He notes some degree of hypothy roidism, also, but he takes no medication for this (as he states he cannot afford it). He denies any other significant medical problems. PAST SURGICAL HISTORY: Tonsillectomy and pacemaker placement. CURRENT MEDICATIONS: None currently. ALLERGIES: No known drug allergies. PERSONAL/SOCIAL HISTORY: He is single and has never been . He has no children. He moved her e from [place] a few years ago to be closer by his sister, who lives in [place]. His sister was his power of business attorney for a period of time, but he believes she stole some of his money and she no longe r has his power of business attorney and he is more or less estranged from his sister (Calista Murguia). He does not smoke nor does he drink alcohol. 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 REVIEW OF SYSTEMS: Otherwise, unremarkable. FAMILY HISTORY: Noncontributory. PHYSICAL EXAMINATION: VITAL SIGNS: His temperature is 97.6, pulse 64, blood pressure 170/96. GENERAL: He is a well-developed, well-nourished, pleasant, alert, white male resting in bed in no ac [place] distress. He is alert and oriented x3. HEENT: Unremarkable. NECK: Supple, without mass or tenderness. LUNGS: Clear to auscultation throughout. CARDIAC: Regular rate and rhythm without murmur. ABDOMEN: Soft, nontender, nondistended. He has a small, but tender umbilical hernia. There is no i ncarcerated hernia currently. Testes are descended bilaterally. He does have a palpable right ingui nal hernia. EXTREMITIES: Unremarkable. LABORATORY AND X-RAY FINDINGS: As mentioned above. ASSESSMENT AND PLAN: Patient with a hernia that appeared to be incarcerated upon presentation. This has reduced spontaneously. He still should have this repaired before returning to his [facility] (he lives in [facility]). I have recommended robotic hernia repair. I discussed this with the patient as well as potential risks. He is on no medications to assist in his urination. I will give him a dose of Flomax before surgery and hopefully diminish the chances of urinary retention . He does understand there is a possibility of this, however. His surgery is scheduled for later to day.
[2018-04-27] MEDS ORDERED: Fentanyl 100 MCG/2 ML VIAL ONE ×2 (13:01→15:45)
[2018-04-27] MEDS ORDERED: Phenylephrine HCL 10 MG/ML VIAL ONE (13:02)
[2018-04-27] MEDS ORDERED: CEFAZOLIN/Water 2 GM/20 ML SYRINGE ONE (13:14)
[2018-04-27 13:19] LABS: ALT (SGPT) 37 U/L (8-55); AST (SGOT) 21 U/L (5-34); Albumin 3.8 g/dL (3.4-4.8); Alkaline Phosphatase 78 U/L (40-150); Anion Gap 8 mmol/L (10-20); BUN (Urea Nitrogen) 8 mg/dL (8.4-25.7); Bilirubin, Total 1.1 mg/dL (0.2-1.2); Calc. Creatinine Clearance 64 mL/min (70-130); Calcium 9.1 mg/dL (7.8-10.44); Carbon Dioxide 27 mmol/L (23-31); Chloride 103 mmol/L (98-107); Estimated GFR-MDRD 80; Globulin 2.3 g/dL (2.4-3.5); Glucose 101 mg/dL (83-110); Potassium 3.8 mmol/L (3.5-5.1); Protein, Total 6.1 g/dL (5.8-8.1); Sodium 134 mmol/L (136-145)
[2018-04-27] MEDS ORDERED: Promethazine HCl 25 MG/ML VIAL SLOW IVP PRN (14:20)
[2018-04-27] MEDS ORDERED: Promethazine HCl 25 MG/ML VIAL IM PRN (14:20)
[2018-04-27] MEDS ORDERED: Meperidine HCl/PF 25 MG/ML VIAL SLOW IVP PRN (14:20)
[2018-04-27] MEDS ORDERED: Dexamethasone 20 MG/5 ML VIAL ONE (14:32)
[2018-04-27] MEDS ORDERED: Ondansetron PF 4 MG/2 ML Vial ONE (14:32)
[2018-04-27] MEDS ORDERED: Lidocaine 1% PF 5 ML VIAL ONE (14:32)
[2018-04-27] MEDS ORDERED: PROPOFOL 200 MG/20 ML VIAL ONE (14:32)
[2018-04-27] MEDS ORDERED: Esmolol 100 MG/10 ML VIAL ONE (14:32)
[2018-04-27] MEDS ORDERED: PHENYLEPHRINE-NS 100 MCG/ML 10 ML SYRINGE ONE (14:32)
[2018-04-27] MEDS ORDERED: Glycopyrrolate 0.2 MG/ML 5 ML SYRINGE ONE (14:32)
[2018-04-27] MEDS ORDERED: HYDROcodone/Acetaminophen 5/325 mg Tablet PO PRN ×2 (16:44)
[2018-04-27] MEDS: Sodium Chloride 0.9% 1,000 ML IV SCH (18:40)
[2018-04-28 08:22] LABS: #Basophils 0.1 thou/uL (0.0-0.2); #Lymphocytes 1.3 thou/uL (1.20-3.40); #Monocytes 1.9 thou/uL (0.11-0.59); #Neutrophils 14.4 thou/uL (1.40-6.50); %Basophils 0.4 % (0.0-1.0); %Lymphocytes 7.2 % (21.0-51.0); %Monocytes 10.9 % (0.0-10.0); %Neutrophils 81.5 % (42.0-75.0); Hemoglobin 13.8 g/dL (14.0-18.0); Mean Corpuscular HGB CONC 33.8 g/dL (32.0-36.0); Mean Corpuscular Hemoglobin 30.4 pg (27.0-31.0); Mean Platelet Volume 6.8 fL (7.4-10.4); Platelet Count 181 thou/uL (130-400); Red Blood Cell (RBC) Count 4.53 mill/uL (4.70-6.10); White Blood Cell (WBC) Count 17.7 thou/uL (4.8-10.8)
[2018-04-28 08:47] LABS: Anion Gap 11 mmol/L (10-20); BUN (Urea Nitrogen) 10 mg/dL (8.4-25.7); Calc. Creatinine Clearance 55 mL/min (70-130); Calcium 9.4 mg/dL (7.8-10.44); Carbon Dioxide 27 mmol/L (23-31); Chloride 99 mmol/L (98-107); Estimated GFR-MDRD 68; Glucose 115 mg/dL (83-110); Potassium 4.1 mmol/L (3.5-5.1); Sodium 133 mmol/L (136-145)
[2018-04-28] MEDS: Tamsulosin HCl 0.4 MG CAP PO SCH (09:50)
[2018-04-28] MEDS ORDERED: Levothyroxine Sodium 100 MCG TAB PO SCH (10:00)
--- NOTE | 2018-04-28 12:21 | DIS ---
ADMISSION DIAGNOSIS: Incarcerated right inguinal hernia. DISCHARGE DIAGNOSES: Incarcerated right inguinal hernia, except that it had spontaneously reduced pr ior to his operation. OPERATION PERFORMED: Robotic right inguinal hernia repair. ADMISSION HISTORY: The patient is an 82-year-old white male. He has some degree of dementia. He cl early had a large right inguinal hernia at presentation with some obstructive findings. By the time I saw the patient on the surgical floor his hernia had clearly reduced. As it had incarcerated; barry leos, I decided to take him to the operating room during this admission. An uncomplicated robotic rig ht inguinal hernia repair was performed. He had a very large indirect defect. There was no evidence of hernia on the left. He had urinary retention after the surgery. He had been given 1 dose of Flomax preoperatively, but olivia coughlin still was unable to void and he currently has a Prater catheter. I would plan on leaving the Prater catheter in place for about 4-5 days while leaving him on a daily dose of Flomax and then I will do a voiding trial in my office and hopefully remove the Prater and leave it out at that time. He has no complaints. He is tolerating his diet. His vital signs have been within normal limits. PHYSICAL EXAMINATION: VITAL SIGNS: On examination, he is afebrile. Vital signs are normal. ABDOMEN: Soft. Incision is healing nicely. : Testicles descended bilaterally with certainly no evidence of hernia or fluid collection. Due to his degree of confusion and poor memory with some degree of obvious dementia, I am concerned a bout his ability to care for himself in independent living. I requested an Adult Protective Services consultation. Consideration is being given to him transferring to another level of care. For now, due to his limited mobility I have requested a rehabilitation consult and hopefully rehabilitation tr robbin. I have reinstated his Synthroid medication that he was prescribed by somebody a while back ( he cannot remember who or when or what dose), but his TSH is somewhat elevated at 6.2 and therefore I will resume his Synthroid. He is entirely stable from a surgical standpoint, his hernias is well fi xed. I would want to see him back in my office on Wednesday for a voiding trial. He may eat a regular diet and have activity as tolerated.
[2018-04-29] MEDS ORDERED: Levothyroxine Sodium 100 MCG TAB PO SCH (06:00)
[2018-04-29] MEDS: Tamsulosin HCl 0.4 MG CAP PO SCH (08:23)
[2018-04-29 15:43] VITALS: BP 101/71; TEMP 98.1
--- NOTE | 2018-05-02 11:17 | OP ---
DATE OF OPERATION: 04/27/2018 PREOPERATIVE DIAGNOSIS: Large right inguinal hernia, incarcerated at the time of presentation. POSTOPERATIVE DIAGNOSIS: Large right inguinal hernia, incarcerated at the time of presentation. OPERATION PERFORMED: Robotic right inguinal hernia repair with a large 3DMax mesh patch, this was an indirect hernia. SURGEON: Ford Domínguez M.D. ANESTHESIA: General endotracheal. INDICATIONS: The patient is an 82-year-old white male. He presented to the hospital complaining of abdominal pain. CT scan showed a large right inguinal hernia with cecum and small bowel present with in the hernia. It was reportedly nonreducible in the emergency room. By the time I saw him, it had actually reduced, but I recommended proceeding with repair secondary to recent incarceration. DESCRIPTION OF OPERATION: Informed consent was obtained. The patient taken to operating room where general endotracheal anesthesia obtained with the patient in supine position. Prater catheter was tila jose. Abdomen was prepped with ChloraPrep and draped in sterile fashion. Local anesthetic was infilt rated with 0.25% Marcaine with epinephrine. A supraumbilical incision was created and dissection was carried through skin and subcutaneous tissue. The patient did have a small umbilical hernia. A 12 mm trocar port was passed through the umbilical hernia. Under direct vision, I placed 2 additional 8 mm robotic ports on either side of midline at the supraumbilical level. The robot was docked to the se ports into the camera and the operation was continued from the robotic console. The left groin was inspected and found to be without evidence of any defect at all. In the right marilee in, there was an obvious large indirect inguinal hernia. A transverse peritoneal incision was created several centimeters above the defect. Preperitoneal dis section was carried out extending inferiorly. On the medial aspect, I was able to identify the pubic tubercle. Laterally, dissection was carried down below the iliopubic tract. Attention was turned t o the large hernia sac. I began dissecting this away from the anterior abdominal wall. Attempts wer e made to begin to dissect it away from the cord structures. Due to the extremely large defect in th e large sac, this was very thinned out and immediately began making holes in the peritoneal layer of the hernia sac. At this point, I decided to simply divide the sac. This was performed with lorenzo a nd electrocautery. A large 3DMax mesh patch was obtained and placed within the preperitoneal space. It was secured to s urrounding structures with 3 interrupted sutures of 2-0 Vicryl, placing one to the pubic tubercle, on e to the anterior abdominal wall just lateral to the epigastric vessels, and one to the anterior aspe ct of the tail of the mesh patch. I then began to close the peritoneal defect. This was difficult due to the large hole from where I t ransected this. Accordingly, I created a flap of tissue from the median umbilical ligament. This wa s incised transversely towards the bladder and then mobilized so that I could stretch it laterally. Using this as well as the intact perineum, the peritoneal defect was closed using a couple of interru pted sutures of 3-0 Stratafix. The defect was appropriately closed and there was no exposed mesh. The fascia at the supraumbilical port was closed with 0 Vicryl suture using a GraNee needle. The lat eral ports were removed under direct vision. Pneumoperitoneum was carefully evacuated. Quarter perc ent Marcaine with epinephrine was infiltrated at each port site. Skin edges approximated with 4-0 Mo nocryl subcuticular suture. Dermabond was placed externally over each port site. There were no comp lications. Patient tolerated the procedure well. His bladder was filled with 200 mL of saline befor e the Prater was removed. The patient was taken to recovery room in stable condition.
--- NOTE | 2018-05-07 11:32 | EKG ---
Test Reason : Blood Pressure : / mmHG Vent. Rate : 072 BPM Atrial Rate : 066 BPM P-R Int : 000 ms QRS Dur : 150 ms QT Int : 410 ms P-R-T Axes : 000 -04 032 degrees QTc Int : 448 ms Electronic atrial pacemaker Right bundle branch block Abnormal ECG Confirmed by CONNOR PINEDA DO ([id number]), clinical editor ISABEL RUIZ ([id number]) on 05/07/2018 11:32:24 AM Referred By: Confirmed By:CONNOR PINEDA DO
== END 2018-04-29 17:15 | DRG 352 ==
LOC: ERS 20:28 → SURG A 04-27 01:47
PROVIDERS: ADMIT Specialist; ATTEND Specialist
PROC: 0YU54JZ Supplement Right Inguinal Region with Synthetic Substitute, Percutaneous Endoscopic Approach (ICD-10-PCS; principal; 2018-04-27)
PROC: 8E0W4CZ Robotic Assisted Procedure of Trunk Region, Percutaneous Endoscopic Approach (ICD-10-PCS; 2018-04-27)
DX: K40.30 Unilateral inguinal hernia, with obstruction, without gangrene, not specified as recurrent (principal); E03.9 Hypothyroidism, unspecified; F03.90 Unspecified dementia, unspecified severity, without behavioral disturbance, psychotic disturbance, mood disturbance, and anxiety; R33.9 Retention of urine, unspecified; Z95.0 Presence of cardiac pacemaker
CPT/HCPCS: 36415; 74177; 80048; 80053; 81003; 82553; 84443; 84484; 85025; 93005; 96374; 96375; C1781; G8978-GP-CK; G8979-GP-CI; G8987-GO-CJ; G8988-GO-CI; J0131; J1100; J2001; J2270; J2370; J2405; J2704; J3010

== ENCOUNTER 2018-09-10 23:09 | Inpatient (IN) | payer MEDICARE ==
[2018-09-10 23:39] LABS: #Lymphocytes 0.8 thou/uL (1.20-3.40); #Monocytes 1.6 thou/uL (0.11-0.59); #Neutrophils 15.3 thou/uL (1.40-6.50); %Basophils 0.2 % (0.0-1.0); %Eosinophils 0.1 % (0.0-10.0); %Lymphocytes 4.7 % (21.0-51.0); %Monocytes 8.9 % (0.0-10.0); %Neutrophils 86.1 % (42.0-75.0); Hemoglobin 12.8 g/dL (14.0-18.0); Mean Corpuscular HGB CONC 33.4 g/dL (32.0-36.0); Mean Corpuscular Hemoglobin 29.5 pg (27.0-31.0); Mean Corpuscular Volume 88.3 fL (78.0-98.0); Mean Platelet Volume 7.2 fL (7.4-10.4); Platelet Count 160 thou/uL (130-400); RBC Distribution Width 12.1 % (11.5-14.5); Red Blood Cell (RBC) Count 4.34 mill/uL (4.70-6.10); White Blood Cell (WBC) Count 17.8 thou/uL (4.8-10.8)
--- NOTE | 2018-09-10 23:54 | RAD ---
AP VIEW CHEST 09/10/18 HISTORY: Patient with dementia. Found on floor. Altered mental status. AP view chest is obtained on 09/10/18. Comparison made to previous exam from 01/26/18. AP view chest demonstrates a dual lead intracardiac pacing device. The lungs are well aerated. No praveen dence of active intrathoracic disease seen. No evidence of effusions, pneumonia or pneumothorax seen. IMPRESSION: Unremarkable AP view chest. POS: [facility]
--- NOTE | 2018-09-10 23:55 | RAD ---
TWO VIEWS LEFT ELBOW: 09/10/18 HISTORY: Fall with left elbow pain. AP and lateral views left elbow demonstrates no definite evidence of left elbow fractures, subluxatio ns or bony lesions. No evidence of joint effusion seen. IMPRESSION: Normal two views left elbow. POS: [facility]
[2018-09-10 23:59] LABS: ALT (SGPT) 12 U/L (8-55); AST (SGOT) 17 U/L (5-34); Albumin 4.4 g/dL (3.4-4.8); Alkaline Phosphatase 72 U/L (40-150); Anion Gap 23 mmol/L (10-20); BUN (Urea Nitrogen) 28 mg/dL (8.4-25.7); Calc. Creatinine Clearance 0 mL/min (70-130); Calcium 10.6 mg/dL (7.8-10.44); Carbon Dioxide 18 mmol/L (23-31); Chloride 103 mmol/L (98-107); Estimated GFR-MDRD 58; Globulin 2.2 g/dL (2.4-3.5); Glucose 130 mg/dL (83-110); Potassium 3.9 mmol/L (3.5-5.1); Protein, Total 6.6 g/dL (5.8-8.1); Sodium 140 mmol/L (136-145)
[2018-09-11 00:21] LABS: CKMB 4.2 ng/mL (0-6.6)
[2018-09-11] MEDS ORDERED: Lorazepam 2 MG/ML VIAL ONE (00:24)
--- NOTE | 2018-09-11 03:38 | PDOC.FPRHP ---
- History of Present Illness Chief Complaint: fall History of Present Illness: 82 yo M, [facility] patient, found down after fall brought to ED. Per ED physician, patient was found down after suspected fall. Patient doesn't remember this happening or any preceding symptoms prior to fall. Denies any recent symptoms such as palpitations, chest pain, SOB. Patient has alzheimers dementia with poor short term memory; however he is able to tell me that he ambulate with a 2WW and usually doesn't fall. He denies lightheaded, dizziness, recent illnesses. Denies any pain. ED Course: 1mg ativan - Allergies/Adverse Reactions Allergies Allergy/AdvReac Type Severity Reaction Status Date / Time No Known Drug Allergies Allergy Verified 04/27/18 12:45 - Home Medications Medication Instructions Recorded Confirmed Type Levothyroxine Sodium 100 mcg PO DAILY 04/29/18 04/29/18 History Tamsulosin HCl [Flomax] 0.4 mg PO DAILY 04/29/18 04/29/18 History - History PMHx:Alzheimers dementia, hyporthyroidism, basilar cell CA, vertigo, bradycardia w/ PM, HTN, BPH PSHx: tonsillectomy, right arm surgery, right ankle surgery FHx: unknown Social: denies tobacco and drugs, social drinker - Review of Systems General: denies: fever/chills, weight/appetite/sleep changes Eyes: denies: eye pain, vision changes ENT: denies: nasal congestion, rhinorrhea Respiratory: denies: cough, congestion, shortness of breath Cardiovascular: denies: chest pain, palpitation, edema, orthopnea Gastrointestinal: denies: nausea, vomiting, diarrhea, constipation, GI bleeding Genitourinary: denies: incontinence, dysuria, polyuria Skin: denies: rashes, lesions, jaundice Musculoskeletal: denies: pain, tenderness, stiffness Neurological: denies: numbness, syncope, seizure Psychological: denies: anxiety, depression - Vital signs BP: [136/80] HR: 88 RR: [20] Tmax: [98.2] Pox: [99]% on [RA] Wt: [72.5kg] - Physical Exam Constitutional: NAD, awake, alert and oriented -Constitutional: A&O x2 HEENT: normocephalic and atraumatic, PERRLA, EOMI, conjunctiva clear, no scleral icterus -HEENT: dry oral mucous membranes Neck: supple, FROM, trachea midline Chest: no-tender to palpation Heart: RRR, normal S1/S2 Lungs: CTAB, no respiratory distress Abdomen: soft, non-tender, bowel sounds present Musculoskeletal: normal structure, normal tone, ROM grossly normal Neurological: no focal deficit, CN II-XII intact Skin: no rash/lesions, good turgor Heme/Lymphatic: no unusual bruising or bleeding, no purpura Psychiatric: normal mood and affect -Psychiatric: poor recent and remote memory FMR H&P: Results - Labs Result Diagrams: 09/11/18 07:05 09/11/18 07:05 Lab results: WBC 17.8 thou/uL (4.8-10.8) H 09/10/18 23:31 Hgb 12.8 g/dL (14.0-18.0) L 09/10/18 23:31 Hct 38.3 % (42.0-52.0) L 09/10/18 23:31 MCV 88.3 fL (78.0-98.0) 09/10/18 23:31 Plt Count 160 thou/uL (130-400) 09/10/18 23:31 Neutrophils % 86.1 % (42.0-75.0) H 09/10/18 23:31 Sodium 140 mmol/L (136-145) 09/10/18 23:31 Potassium 3.9 mmol/L (3.5-5.1) 09/10/18 23:31 Chloride 103 mmol/L (98-107) 09/10/18 23:31 Carbon Dioxide 18 mmol/L (23-31) L 09/10/18 23:31 BUN 28 mg/dL (8.4-25.7) H 09/10/18 23:31 Creatinine 1.21 mg/dL (0.7-1.3) 09/10/18 23:31 Glucose 130 mg/dL (83-110) H 09/10/18 23:31 Calcium 10.6 mg/dL (7.8-10.44) H 09/10/18 23:31 Total Bilirubin 1.0 mg/dL (0.2-1.2) 09/10/18 23:31 AST 17 U/L (5-34) 09/10/18 23:31 ALT 12 U/L (8-55) 09/10/18 23:31 Alkaline Phosphatase 72 U/L (40-150) 09/10/18 23:31 CK-MB (CK-2) 4.2 ng/mL (0-6.6) 09/10/18 23:31 B-Natriuretic Peptide 87.6 pg/mL (0-100) 09/10/18 23:31 Serum Total Protein 6.6 g/dL (5.8-8.1) 09/10/18 23:31 Albumin 4.4 g/dL (3.4-4.8) 09/10/18 23:31 - Radiology Interpretation Chest x-ray Status: report reviewed by me Additional comment: dual chamber pacemaker Other Status: report reviewed by me Additional comment: cervial spine CT: negative brain CT: negative elbow xray: negative for fx FMR H&P: A/P - Problem List (1) Elevated troponin level Current Visit: Yes Status: Acute Code(s): R74.8 - ABNORMAL LEVELS OF OTHER SERUM ENZYMES (2) Increased anion gap metabolic acidosis Current Visit: Yes Status: Acute Code(s): E87.2 - ACIDOSIS (3) Unwitnessed fall Current Visit: Yes Status: Acute Code(s): R29.6 - REPEATED FALLS (4) Alzheimer disease Current Visit: Yes Status: Acute Code(s): G30.9 - ALZHEIMER'S DISEASE, UNSPECIFIED; F02.80 - DEMENTIA IN OTH DISEASES CLASSD ELSWHR W/O BEHAVRL DISTURB (5) Hypertension Current Visit: Yes Status: Acute Code(s): I10 - ESSENTIAL (PRIMARY) HYPERTENSION (6) Hypothyroid Current Visit: Yes Status: Acute Code(s): E03.9 - HYPOTHYROIDISM, UNSPECIFIED (7) BPH (benign prostatic hyperplasia) Current Visit: Yes Status: Acute Code(s): N40.0 - BENIGN PROSTATIC HYPERPLASIA WITHOUT LOWER URINRY TRACT SYMP (8) Constipation Current Visit: Yes Status: Acute Code(s): K59.00 - CONSTIPATION, UNSPECIFIED (9) Hypercalcemia Current Visit: Yes Status: Acute Code(s): E83.52 - HYPERCALCEMIA (10) Leukocytosis Current Visit: Yes Status: Acute Code(s): D72.829 - ELEVATED WHITE BLOOD CELL COUNT, UNSPECIFIED - Plan Elevated troponin, ACS rule out -indeterminate troponin 0.04, will continue to trend -HEART 4 -EKG w/ RBBB, v paced -tele monitoring AG met acidosis -AG 19 -likely 2/2 to dehydration, start mIVF, recheck labs tomorrow afternoon -pt with leukocytosis of 17 w/ no bands, afebrile. low suspicion for infection; however cannot be ruled out. Will obtain procal and UA Leukocytosis -no bands, afebrile -see above Unwitnessed fall -xrays negative for fractures, ct head neg for trauma -fall precautions in place -hx is scant, unsure if syncopal episode vs. mechanical fall -will get echo to reassess, last echo in 2015 wnl -PT consult Hypercalcemia, mild -asx -IVF, recheck labs later Hypothyroidism -recheck TSH -resume home meds HTN -resume home meds BPH -resume home meds Constipation -resume home meds dvt ppx: LMWH diet: NPO for now dispo: <2 midnight Will discuss with Dr. Nicole FMR H&P: Upper Level - Pertinent history PT is an 82 y/o M with dementia, hypothyroidism, HTN presenting after a fall. PT states he does not know what happened today. Per chart he fell at the [facility]. Did receive Ativan in ED in order to get Imaging performed. - Pertinent findings PHYSICAL EXAM: GEN: NAD, pleasant CARDIO: reg rhythm, mild tachy, no MRG LUNGS: lungs CTAB, no wheezes, ronchi, non-labored breathing MSK: MAEW, no edema, pulses present and strong. No bruising or edema of major joints. Strength p reserved and no obvious evidence of injury from fall. - Plan Date/Time: 09/11/18 0336 I, LW, have evaluated this patient and agree with findings/plan as outlined by employee communications intern resident. Pertinent changes/additions are listed here. 1.ACS R/o: Initial troponin indeterminate, will trend. Likely demand ischemia. EKG Shows RBBB. No CP or symptoms with normal VS. Heart score 4. 2.S/p Fall: Ct head/C-spine negative and XR limbs negative. Fall precautions and continue to monitor. 3.Leukocytosis: No clinical evidence of infection, possibly hemo-concentration vs reactive after fall. 4.USAMA: Likely pre-renal from dehydration. Cr 1.21 and GFR 58 which is slightly worse than recorded baseline function. Will give IVF bolus. This is likely cause of AG acidosis as well. Will trend BMP and monitor. 5.HTN: No acute issues 6.Hypothyroidism: Continue Synthroid 50mcg daily. Addendum - Attending - Attending Attestation Date/Time: 09/11/18 3366 I personally evaluated the patient and discussed the management with Dr. Husain. I agree with the History, Examination, Assessment and Plan documented above with any addition or exceptions noted below. The patient was sent to the ER after being found down at the [facility]. His troponins have trended up. Dr. Bernstein, cardiology, has been consulted. He recommended nitropaste. With the NSTEMI, the patient has refused therapeutic lovenox. Will admit to telemetry. Will continue to trend cardiac enzymes.
[2018-09-11 04:04] LABS: Bilirubin Negative (Negative); Blood, Urine Large (Negative); Clarity CLEAR (Clear); Glucose, Urine (Dipstick) Negative (Negative); Leukocyte Small (Negative); Nitrite Negative (Negative); Protein, Urine (Dipstick) 30 mg/dL (Neg-Trace); Specific Gravity, Urine 1.024 (1.002-1.036); Urobilinogen 0.2 mg/dL (0.2-1.0)
[2018-09-11 04:08] LABS: Bacteria/HPF None Seen HPF (None Seen); Hyaline Casts/LPF 4-6 HYALINE CAST LPF (0-3 Hyaline); Pathc Cast-AUWi Flag 0.14 (0-2.49); Squamous Epithelial 0-3 HPF (0-3)
[2018-09-11 04:31] LABS: RBC/HPF 0-3 HPF (0-3); Renal Epithelial None Seen HPF (0-3); Transitional Epithelial NONE SEEN HPF (0-3)
[2018-09-11 05:42] LABS: CKMB 19.3 ng/mL (0-6.6)
[2018-09-11] MEDS ORDERED: Aspirin Chewable 81 MG TAB ONE (06:46)
[2018-09-11] MEDS ORDERED: Nitroglycerin 2% Ointment 1 INCH/1 GM Packet ONE (06:51)
--- NOTE | 2018-09-11 06:56 | PDOC.EVN ---
Event Note - Event Note Event Note: Patient repeat troponins elevated from .04 to .3. Repeat EKG showed no new changes. Patient had just fallen again when I assessed him. Denied chest pain. After discussion about results-him having heart attack, and the options, patient refused anticoagulation stating "I just want my walker." Decision making capacity of patient is limited. He stated his medical POA is Jagdish Shin (friend) [phone]. Consulted Dr. Bernstein who recommended adding nitro paste. No intervention at this point. He will asses him.
[2018-09-11 08:29] LABS: #Basophils 0.1 thou/uL (0.0-0.2); #Lymphocytes 1.8 thou/uL (1.20-3.40); #Monocytes 1.9 thou/uL (0.11-0.59); #Neutrophils 11.2 thou/uL (1.40-6.50); %Basophils 0.3 % (0.0-1.0); %Eosinophils 0.3 % (0.0-10.0); %Lymphocytes 11.8 % (21.0-51.0); %Monocytes 12.8 % (0.0-10.0); %Neutrophils 74.8 % (42.0-75.0); Hemoglobin 12.7 g/dL (14.0-18.0); Lactic Acid 1.6 mmol/L (0.5-2.2); Mean Corpuscular Hemoglobin 29.3 pg (27.0-31.0); Mean Corpuscular Volume 88.9 fL (78.0-98.0); Mean Platelet Volume 7.8 fL (7.4-10.4); Platelet Count 154 thou/uL (130-400); RBC Distribution Width 12.2 % (11.5-14.5); Red Blood Cell (RBC) Count 4.32 mill/uL (4.70-6.10); White Blood Cell (WBC) Count 14.9 thou/uL (4.8-10.8)
[2018-09-11 08:53] LABS: Anion Gap 13 mmol/L (10-20); BUN (Urea Nitrogen) 22 mg/dL (8.4-25.7); Calc. Creatinine Clearance 0 mL/min (70-130); Carbon Dioxide 26 mmol/L (23-31); Chloride 106 mmol/L (98-107); Estimated GFR-MDRD 77; Glucose 84 mg/dL (83-110); Potassium 3.6 mmol/L (3.5-5.1); Sodium 141 mmol/L (136-145)
[2018-09-11] MEDS ORDERED: Enoxaparin Sodium 40 MG/0.4 ML SYRINGE ONE (09:19)
[2018-09-11] MEDS: Enoxaparin Sodium 40 MG/0.4 ML SYRINGE SC SCH (09:39)
[2018-09-11] MEDS: cefTRIAXone\\ROCEPHIN 1 GM in Sodium Chloride 0.9% 100 ML IVPB SCH (09:39)
[2018-09-11 10:28] LABS: Thyroid Stimulating Hormone 0.0061 uIU/mL (0.35-4.94)
[2018-09-11 11:26] LABS: CKMB 31.9 ng/mL (0-6.6)
--- NOTE | 2018-09-11 13:29 | CT ---
PRELIMINARY REPORT/[facility]/EMERGENTY AFTER-HOURS PROCEDURE CT Cervical Spine Without Contrast EXAM DATE/TIME: 09/11/2018 2:14 AM CLINICAL HISTORY: 82 years old, male; Injury or trauma; Fall; Initial encounter; Blunt trauma; Patient HX: From the man or, PT was found on floor by nurse, PT unable to recall events d/t alzheimers. Scratch/abrasions to R T arm/leg and lt arm pain. TECHNIQUE: Axial computed tomography images of the cervical spine without intravenous contrast. Coronal and sagi ttal reformatted images were created and reviewed. COMPARISON: No relevant prior studies available. FINDINGS: Vertebrae: No evidence of acute fracture. No evidence of malalignment. Multilevel anterior osteophyto sis. Mild narrowing, sclerosis and posterior uncovertebral osteophyte formation particularly at C4-5, C5-6, C6-7 levels consistent with cervical spondylosis. Multilevel bilateral facet sclerosis. Discs/Spinal canal/Neural foramina: No spinal stenosis. No neural foraminal narrowing. Soft tissues: Unremarkable. Lungs: Lung apices are normal. IMPRESSION: 1. No evidence of acute fracture. 2. No evidence of malalignment. 3. Multilevel cervical spondylosis and facet osteoarthrosis as described above consistent with chroni c degenerative changes. Thank you for allowing us to participate in the care of your patient. Dictated and Authenticated by: Patti Sam MD 09/11/2018 3:08 AM Central Time ([place] & [place]) FINAL REPORT CT CERVICAL SPINE NONCONTRAST PERFORMED ON AN EMERGENCY BASIS: Date: 09/11/18 Time: 0216 hours HISTORY: Fall. Neck injury. FINDINGS/IMPRESSION: Findings agree with the preliminary report by [facility]. Prominent degenerative changes. No acute fracture or dislocation. POS: [facility]
--- NOTE | 2018-09-11 13:31 | CT ---
PRELIMINARY REPORT/[facility]/EMERGENTY AFTER-HOURS PROCEDURE CT Head Without Contrast EXAM DATE/TIME: 09/11/2018 2:14 AM CLINICAL HISTORY: 82 years old, male; Injury or trauma; Fall; Initial encounter; Blunt trauma (contusions or hematomas) ; Consciousness not specified; [facility] [place]: [place], PT was found on floor by nurse, PT unable to recall events d/t alzheimers. Scratch/abrasions to RT arm/leg and lt arm pain. TECHNIQUE: Axial computed tomography images of the head/brain without contrast. COMPARISON: No relevant prior studies available. FINDINGS: Brain: No evidence of acute intracranial hemorrhage, extraxial fluid or midline shift. Mild low densi ty changes within the white matter bilaterally. Cerebellum atrophic; otherwise, posterior fossa struc tures within normal limits. Ventricles: Mild prominence of the cerebral sulci and ventricles. Bones/joints: Unremarkable. No acute fracture. Sinuses: Visualized sinuses are unremarkable. No acute sinusitis. Mastoid air cells: Visualized mastoid air cells are unremarkable. No mastoid effusion. Soft tissues: Unremarkable. IMPRESSION: 1. No evidence of acute intracranial hemorrhage, extraxial fluid or midline shift. 2. Mild cerebral atrophy. 3. 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 Thank you for allowing us to participate in the care of your patient. Dictated and Authenticated by: Patti Sam MD 09/11/2018 2:40 AM Central Time ([place] & [place]) FINAL REPORT CT HEAD NONCONTRAST PERFORMED ON AN EMERGENCY BASIS: Date: 09/11/18 Time: 0215 hours HISTORY: Fall. Altered mental status. COMPARISON: 12/27/17. FINDINGS/IMPRESSION: Findings agree with the preliminary report by Kim[facility]. Chronic-type findings are stable. No acute intrac ranial abnormalities are demonstrated. POS: [facility]
[2018-09-11] MEDS: Lactated Ringer's 1,000 ML IV SCH (14:03)
[2018-09-11 15:26] LABS: Critical Call Chem Troponin I RESULT DECREASING
[2018-09-11 15:45] LABS: CKMB 23.5 ng/mL (0-6.6); Critical Call CKMB RESULT DECREASING
[2018-09-12 01:58] VITALS: BMI 19.6
--- NOTE | 2018-09-12 06:56 | PDOC.FM ---
- Subjective Subjective: Patient states he feel well this AM. Denies any chest pain, SOB, N/V/D, or abdominal pain. Also denies any dysuria or urinary frequency. Is requesting food this AM. Stated he cannot eat until seen by cardiology. Patient endorsed understanding. A&Ox3 on exam this AM. - Objective MAR Reviewed: Yes Vital Signs & Weight: Vital Signs (12 hours) Temp Pulse Resp BP Pulse Ox 09/12/18 03:27 98.2 F 66 16 119/61 97 09/12/18 01:25 100 09/12/18 01:20 98.1 F 65 16 121/63 100 Weight Weight 65.7 kg I&O: 09/10/18 09/11/18 09/12/18 06:59 06:59 06:59 Output Total 100 Balance -100 Result Diagrams: 09/12/18 11:39 09/12/18 11:40 Phys Exam - Physical Examination Constitutional: NAD HEENT: moist MMs Neck: supple, full ROM Respiratory: no wheezing, no rales, no rhonchi, clear to auscultation bilateral Cardiovascular: RRR, no significant murmur Gastrointestinal: soft, positive bowel sounds Musculoskeletal: no edema, pulses present Neurological: non-focal, moves all 4 limbs Psychiatric: normal affect Skin: no rash, normal turgor Dx/Plan (1) Alzheimer disease Code(s): G30.9 - ALZHEIMER'S DISEASE, UNSPECIFIED; F02.80 - DEMENTIA IN OTH DISEASES CLASSD ELSWHR W/O BEHAVRL DISTURB Status: Acute (2) BPH (benign prostatic hyperplasia) Code(s): N40.0 - BENIGN PROSTATIC HYPERPLASIA WITHOUT LOWER URINRY TRACT SYMP Status: Acute (3) Constipation Code(s): K59.00 - CONSTIPATION, UNSPECIFIED Status: Acute (4) Elevated troponin level Code(s): R74.8 - ABNORMAL LEVELS OF OTHER SERUM ENZYMES Status: Acute (5) Hypercalcemia Code(s): E83.52 - HYPERCALCEMIA Status: Acute (6) Hypertension Code(s): I10 - ESSENTIAL (PRIMARY) HYPERTENSION Status: Acute (7) Hypothyroid Code(s): E03.9 - HYPOTHYROIDISM, UNSPECIFIED Status: Acute (8) Increased anion gap metabolic acidosis Code(s): E87.2 - ACIDOSIS Status: Acute (9) Leukocytosis Code(s): D72.829 - ELEVATED WHITE BLOOD CELL COUNT, UNSPECIFIED Status: Acute (10) Unwitnessed fall Code(s): R29.6 - REPEATED FALLS Status: Acute - Plan Plan: Elevated troponin, NSTEMI -indeterminate troponin trended up to 0.472 but then down to 0.416 -HEART score of 4 -EKG w/ RBBB, v paced. No events overnight per telemetry. -Will await recs from cards for further management. Dr. Bernstein consulted from ED yesterday. Dr. Cameron to see today. Appreciate recs. AG met acidosis -AG 19 on admission but resolved s/p IVFs. -Likely 2/2 to dehydration in setting of UTI. Leukocytosis -no bands & afebrile in admission. Likely 2/2 volume depletion and/or UTI. Repeat pending for this AM. Unwitnessed fall -xrays negative for fractures, ct head neg for trauma -fall precautions in place -hx is scant, unsure if syncopal episode vs. mechanical fall -will get echo to reassess, last echo in 2016 wnl -PT consult Hypercalcemia, mild -asx -IVF, repeat labs pending Hypothyroidism -recheck TSH, low but T4 WNLs. -resume home meds HTN -resume home meds BPH -resume home meds Constipation -resume home meds dvt ppx: LMWH diet: NPO for now pending cards evaluation. dispo: <2 midnight Addendum - Attending - Attending Attestation Date/Time: 09/12/18 4591 I personally evaluated the patient and discussed the management with Dr. Sylvester. I agree with the History, Examination, Assessment and Plan documented above with any addition or exceptions noted below. Patient has been seen by Dr. Tobar who recommends medical management of risk factors with the recent nstemi and no surgical intervention. Pt will d/c back to [place].
[2018-09-12] MEDS: Lactated Ringer's 1,000 ML IV SCH (07:51)
[2018-09-12] MEDS ORDERED: Tamsulosin HCl 0.4 MG CAP PO SCH (09:00)
[2018-09-12] MEDS ORDERED: Aspirin 81 mg Enteric Coated Tablet PO SCH (09:00)
[2018-09-12] MEDS: Enoxaparin Sodium 40 MG/0.4 ML SYRINGE SC SCH (10:28)
[2018-09-12] MEDS: cefTRIAXone\\ROCEPHIN 1 GM in Sodium Chloride 0.9% 100 ML IVPB SCH (10:29)
[2018-09-12] MEDS ORDERED: cloNIDine 0.1 MG TAB PO PRN (11:02)
[2018-09-12] MEDS ORDERED: Milk Of Magnesia 30 ML UDCUP PO PRN (11:02)
[2018-09-12] MEDS ORDERED: Simethicone Chewable 80 MG TAB PO PRN (11:02)
[2018-09-12] MEDS ORDERED: Acetaminophen 500 MG TAB PO PRN (11:02)
[2018-09-12] MEDS ORDERED: Bisacodyl 10 MG SUPP PR PRN (11:02)
--- NOTE | 2018-09-12 12:02 | PDOC.CTH ---
Cardiology Progress Note - Subjective Pt. seen and eval. He is upset that he was NPO. I explained to him why but he doesn't seem to understand. No new events overnight. - Objective Vital Signs Temp Pulse Resp BP Pulse Ox 09/12/18 08:55 98.1 F 69 19 134/72 96 09/12/18 03:27 98.2 F 66 16 119/61 97 09/12/18 01:25 100 09/12/18 01:20 98.1 F 65 16 121/63 100 Weight 144 lb 13.499 oz 09/11/18 09/12/18 09/13/18 06:59 06:59 06:59 Output Total 100 Balance -100 - Physical Examination General/Neuro: other: (Alert, oriented to self.) Neck: carotid US brisk Lungs: CTA Heart: RRR Abdomen: no HSM, soft - Telemetry Telemetry Rhythm: NSR, occasional pacing. - Labs Result Diagrams: 09/11/18 07:05 09/11/18 07:05 Troponin/CKMB CK-MB (CK-2) 23.5 ng/mL (0-6.6) H* 09/11/18 14:38 Troponin I 0.416 ng/mL (< 0.028) H* 09/11/18 14:38 - Assessment/Plan 1. Dementia. When I originally spoke to the pt. this AM I felt that he may be a candidate for a cath but it became more obvious that he does not grasp onto what I am explaining to him,. He becomes more upset and non - cooperative. I do not feel that he is a candidate for a cath. He will not be able to coperate and may cause more harm during or after the procedure. Since he is a poor candidate for a cath then the stress test is not indicated. I would treat him medically. 2. NSTEMI: medical treatment with betablockers, low dose REHANA-I if tolerated. Consider Plavix but he does have falls. Continue ASA.
--- NOTE | 2018-09-12 12:08 | CON ---
DATE OF CONSULTATION: HISTORY OF PRESENT ILLNESS: Mr. Eloy Brothers is an 82-year-old white male, patient of Dr. Tobar. He was evaluated in the hospital in March 2016 with nausea, vomiting, and found to have bradycardia with heart rates in the 30s and the 40s. He ultimately underwent placement of a dual-chamber pacemaker. His last followup in the office was in June 2016 and he has not been seen since that time. He now is brought to the hospital secondary to a fall at the assisted living. The patient could not give much history in regard to this due to his dementia. He denies any syncope. He denies any chest discomfort or shortness of breath. He has been found to have abnormal troponin I and cardiology consultation is requested. The patient is uncertain with his fall if he fell on his chest. PAST MEDICAL HISTORY: Alzheimer dementia, hypothyroidism, hypercholesterolemia, osteoporosis, BPH. PAST SURGICAL HISTORY: Tonsillectomy, right arm surgery, right ankle surgery, and pacemaker placement. SOCIAL HISTORY: He does not smoke or drink. REVIEW OF SYSTEMS: Difficult to determine due to his dementia, but he is quite emphatic that he has not had any chest discomfort or shortness of breath. PHYSICAL EXAMINATION: VITAL SIGNS: Blood pressure 138/70, pulse 68. HEENT: PERRL. NECK: Supple. CHEST: Clear. CARDIAC: S1 and S2 are normal without any S3, S4, or murmurs. ABDOMEN: Normal bowel sounds without tenderness. EXTREMITIES: Revealed no clubbing, cyanosis, or edema. NEUROLOGICAL: Intact except for his dementia. LABORATORY DATA: Cervical spine CT revealed no evidence of fracture. Head CT revealed mild cerebral atrophy. No evidence of intracranial hemorrhage. Chest x-ray is unremarkable. Hemoglobin 12.7, hematocrit 38.4, white count 14,900, platelets 154,000. Sodium 141, potassium 3.6, chloride 106, carbon dioxide 26, BUN 22, and creatinine 0.94. TSH is very low, however, free T4 is normal. CK-MB 31.9. Troponin I 0.472. In the past, his troponin Is have been totally negative. IMPRESSION: 1. Probable [id number] myocardial infarction, although this also could be due to myocardial contusion. He does not recall hitting his chest and he did not see any obvious bruising on his chest. 2. Severe dementia. 3. Status post pacemaker placement. 4. Hypertension. 5. Hypothyroidism. 6. Hyperlipidemia. 7. Benign prostatic hypertrophy. PLAN: Topical nitrates have been placed. I would also place him on low-dose aspirin. Consideration may need to be given to cardiac catheterization. However, I am not certain as to his ability to understand the process and give informed consent. His usual information and referral director, Dr. Tobar, will see him in the morning. Job ID: [id number]
[2018-09-12 12:13] LABS: #Eosinphils 0.3 thou/uL (0.0-0.7); #Lymphocytes 1.5 thou/uL (1.20-3.40); #Neutrophils 5.8 thou/uL (1.40-6.50); %Basophils 0.4 % (0.0-1.0); %Eosinophils 3.1 % (0.0-10.0); %Lymphocytes 17.7 % (21.0-51.0); %Monocytes 11.5 % (0.0-10.0); %Neutrophils 67.4 % (42.0-75.0); Hemoglobin 11.4 g/dL (14.0-18.0); Mean Corpuscular HGB CONC 33.5 g/dL (32.0-36.0); Mean Corpuscular Hemoglobin 29.7 pg (27.0-31.0); Mean Corpuscular Volume 88.7 fL (78.0-98.0); Mean Platelet Volume 7.7 fL (7.4-10.4); Platelet Count 147 thou/uL (130-400); RBC Distribution Width 12.1 % (11.5-14.5); Red Blood Cell (RBC) Count 3.85 mill/uL (4.70-6.10); White Blood Cell (WBC) Count 8.6 thou/uL (4.8-10.8)
[2018-09-12 12:17] LABS: Anion Gap 13 mmol/L (10-20); BUN (Urea Nitrogen) 16 mg/dL (8.4-25.7); Calc. Creatinine Clearance 64 mL/min (70-130); Calcium 8.9 mg/dL (7.8-10.44); Carbon Dioxide 23 mmol/L (23-31); Chloride 106 mmol/L (98-107); Estimated GFR-MDRD 87; Glucose 91 mg/dL (83-110); Potassium 3.7 mmol/L (3.5-5.1); Sodium 138 mmol/L (136-145)
[2018-09-12 12:19] VITALS: TEMP 98.2
[2018-09-12 13:20] VITALS: BP 141/65
--- NOTE | 2018-09-12 15:52 | CON ---
DATE OF CONSULTATION: 09/12/2018 HISTORY OF PRESENT ILLNESS: He may have been seen by Dr. Bernstein yesterday, but I am uncertain. This is an unfortunate 82-year-old gentleman, who has dementia, apparently had a fall, was admitted to the hospital after a fall. He lives in the shelter. I did see this gentleman back in 2016. At which time, he already had significant dementia, was in assisted living facility. He was found to have bradycardia and underwent a dual chamber pacemaker insertion. At this time, we are seeing him after he was admitted and was noted to have abnormal cardiac enzymes. He did admit to me that he did have a fall, but he denies any chest pain. His EKG did not show any acute changes and he remains confused. This morning, when I talked to him, he seemed to be somewhat agreeable to the cardiac catheterization, but refused to do so unless he could eat and then thought he was saying that he would eat and then he became somewhat difficult and finally agreed to let the patient eat and would consider doing a cardiac catheterization. Then, he apparently refused to the nurses and he did not want the procedure, was unclear as to what we were talking about, but I had already completely explained the procedure to him before and he seemed to be agreeable, but now does not seem to be agreeable. Given this situation, I do not believe he is good candidate for a cardiac catheterization and nor is he a candidate for stress testing if we were unable to do a cardiac catheterization to follow even if the stress test becomes abnormal or were to be found to be abnormal due to his Alzheimer disease and most likely his inability to continue to be cooperative during the procedure and afterwards. PAST MEDICAL HISTORY: His past medical history is significant for the dementia. He has benign prostatic hypertrophy. He has a history of hypertension. He has a history of falls. He has hypothyroidism and osteoporosis. He also has hypervitaminosis in the past. SOCIAL HISTORY: He is single. There is no history of alcohol or tobacco abuse. He is retired. FAMILY HISTORY: Family history is noncontributory for any early heart disease in the past. MEDICATIONS: Prior to admission included; 1. Flomax. 2. Levothyroxine. 3. Trazodone. 4. Simethicone. 5. MiraLAX. 6. Milk of magnesia. 7. Guaifenesin. 8. Biscolax. 9. Pain relievers. 10. Vitamins. At this time, his medicines include; 1. Rocephin. 2. Aspirin. 3. Lovenox. 4. Synthroid. 5. Vitamins. 6. MiraLAX. 7. Flomax. 8. Trazodone. 9. Tylenol. 10. Dulcolax as needed. 11. Catapres as needed and other p.r.n. medications. REVIEW OF SYSTEMS: His review of systems certainly is difficult to obtain. I cannot really trust with the patient telling me how he does were glasses. He has no other complaints. He had no GI or complaints. He denies any chest pain. He had no lower extremity complaints. Extremities did not show any significant abnormalities. He said he does have some generalized weakness, perhaps. Otherwise, please refer to the notes already dictated. PHYSICAL EXAMINATION: GENERAL: Reveals an elderly gentleman, who is in no acute distress. He is still complaining that he is not get anything to eat. He has a hard time listening to the questions because he is focusing on getting something to eat. VITAL SIGNS: Blood pressure was 134/72. He is afebrile. Respiratory rate is 16, heart rate is in the 60s to 70s and has occasional pacing. He is in normal sinus rhythm. HEENT: Shows the head to be normocephalic and atraumatic. Carotid pulses are present. I did not hear any significant bruits. CHEST: Clear to auscultation. CARDIOVASCULAR: Reveals a regular rate and rhythm. He has well-healed surgical incision underneath the left clavicular area after pacemaker insertion. CHEST: Clear to auscultation. ABDOMEN: Soft and nontender. Positive bowel sounds are present. EXTREMITIES: Showed no clubbing or cyanosis. There is no significant edema. Pedal pulses are present, somewhat diminished but are present. Popliteal pulses are present. SKIN: Warm and dry. NEUROLOGICAL: The patient has obvious dementia. DIAGNOSTIC DATA: EKG did not show any acute changes. LABORATORY DATA: As noted did show WBC of 17.8 on admission, it is now decreased down to 14.9, hemoglobin 12.7, platelet count was 154,000. His sodium is 141, BUN 22, creatinine 0.9. Blood sugar was 84. His cardiac enzymes on admission showed a CPK-MB of 4.2. This increased up to 19.3 with a troponin I of 0.339, then increased up to 0.446, and the peak troponin was 0.472 and is now decreased back down to 0.416. The peak MB was 31.9, is now decreased down to 23.5. This certainly appears to indicate a small [id number] elevation myocardial infarction. His TSH was also very low most likely, because he is on the thyroid medication, it was 0.0061. IMPRESSION: 1. Elderly patient with dementia. He is obviously not being very cooperative. I do not believe he is a very good candidate for cardiac catheterization. We will continue to treat him medically. 2. [id number] elevation myocardial infarction. I believe again the best management for this gentleman would be medical management since he has denied any chest pain and does not have any significant EKG changes. Enzymes are trending downwards and he has been noncooperative during the hospital course thus far and I do not think he is a good candidate if he becomes uncooperative during the catheterization or afterwards there will be increased risk of bleeding. I will treat him medically and symptomatically. 3. History of pacemaker insertion. This appears to be functioning normally. I do not see any abnormalities. We can have the pacemaker interrogated while he is here in the hospital. We will continue to monitor the patient with you. Fortunately , he did have an echocardiogram performed, which showed a normal ejection fraction about 50% to 55% with mild left atrial dilatation, only mild mitral and tricuspid valve regurgitation. At this time, the best option for the patient is to continue beta blockers if he will take them as well as his other medications and could consider putting him on an aspirin a day as well as consider Plavix, but this falls are may be also risky, but can certainly do that short term, start him on Plavix as well as aspirin and then continue with beta blockers. Job ID: [id number] [facility] CENTERMatthew
[2018-09-12] MEDS ORDERED: Carvedilol 3.125 MG TAB PO SCH (17:00)
[2018-09-12] MEDS ORDERED: traZODone HCl 50 MG TAB PO SCH (21:00)
--- NOTE | 2018-09-13 08:06 | DIS ---
DATE OF ADMISSION: 09/11/2018 DATE OF DISCHARGE: 09/12/2018 RESIDENT: Maty Sylvester MD ADMITTING ATTENDING: Génesis Nicole MD DISCHARGE ATTENDING: Génesis Nicole MD CONSULTS: Cardiology, Dr. Laura Tobar and Dr. Patrick Bernstein. PROCEDURES: 1. Chest x-ray on 09/10/2018 which showed dual lead intracardiac pacing device, but otherwise well-aerated lungs with no evidence of acute intrathoracic disease including effusions, pneumonia, or pneumothorax. 2. Left elbow x-ray, which showed a normal 2-view of the left elbow. 3. Brain CT on 09/10/2018 which showed no evidence of acute intracranial hemorrhage, extra-axial fluid, or midline shift with mild cerebral atrophy. 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 4. Cervical spine CT on 09/10/2018 which showed no evidence of acute fracture or malalignment. Multilevel cervical spondylosis and facet osteoarthrosis were noted consistent with chronic degenerative changes. 5. Echocardiogram on 09/11/2018 which showed an estimated EF of 50% to 55% with a pace wire in the right ventricle, a mildly dilated left atrium, and mild mitral and tricuspid regurgitation. PRIMARY DIAGNOSES: 1. Mpx-NC-[id number] elevation myocardial infarction. 2. Acute cystitis. 3. Metabolic acidosis secondary to volume depletion. 4. Leukocytosis secondary to volume depletion and/or acute infection. 5. Hypercalcemia, secondary to volume depletion. SECONDARY DIAGNOSES: 1. Alzheimer's dementia. 2. Hypertension. 3. Hypothyroidism. 4. Benign prostatic hyperplasia. 5. Chronic constipation. DISCHARGE MEDICATIONS: 1. Flomax 0.4 mg p.o. daily. 2. Synthroid 100 mcg p.o. daily. 3. Trazodone HCL 50 mg p.o. at bedtime. 4. Simethicone 80 mg p.o. t.i.d. p.r.n. 5. MiraLAX 17 g packet p.o. daily. 6. Milk of magnesia 30 mL p.o. daily p.r.n. 7. Guaifenesin 200 mg p.o. every 4 hours p.r.n. 8. Bisacodyl 10 mg [place] daily p.r.n. 9. Acetaminophen 500 mg p.o. every 4 hours p.r.n. 10. Multivitamin one each p.o. daily. 11. Aspirin 81 mg p.o. daily. 12. Coreg 3.125 mg p.o. b.i.d. with meals. 13. Atorvastatin 40 mg p.o. daily. DISCONTINUED MEDICATIONS: Clonidine 0.1 mg p.o. every 6 hours p.r.n. HOSPITAL COURSE: The patient is an 82-year-old gentleman with past medical history significant for hypertension and significant Alzheimer's dementia, who was brought to the emergency department for evaluation after being found down at [facility] for an unknown period of time. The events preceding his fall are also unknown as the patient has significant Alzheimer's dementia and had no recollection of what he was doing prior to his fall. On presentation to the emergency department, the patient's vitals were noted to be within normal limits and he was in no acute distress. Routine lab work including a CBC, CMP, CK-MB, troponin, BMP, and lactic acid were obtained as well as a urinalysis. His blood work was notable for an elevated white blood cell count of 17.8, hemoglobin of 12.8, BUN and creatinine of 28 and 1.21 with an EGFR of 58, and anion gap metabolic acidosis with sodium of 140, chloride of 103, bicarb of 18, slightly elevated troponin of 0.049, and normal lactic acid of . Job ID: [id number]
[2018-09-13] MEDS ORDERED: Non-Formulary Item 1 EACH (Multivitamin [Daily Multiple Vitamin] 1 EACH) PO SCH (09:00)
[2018-09-13] MEDS ORDERED: Polyethylene Glycol 3350 17 GM Packet PO SCH (09:00)
[2018-09-13] MEDS ORDERED: Levothyroxine Sodium 100 MCG TAB PO SCH (09:00)
[2018-09-13] MEDS ORDERED: Multivit, Therapeutic 1 TAB PO SCH (09:00)
== END 2018-09-12 15:59 | DRG 281 ==
LOC: ERS 23:09 → ERHOLD 09-11 03:49 → 2NO 09-12 01:10
PROVIDERS: ADMIT Family Medicine; ATTEND Family Medicine
DX: I21.4 Non-ST elevation (NSTEMI) myocardial infarction (principal); E87.2 Acidosis; I47.1 Supraventricular tachycardia; N30.00 Acute cystitis without hematuria; G30.9 Alzheimer's disease, unspecified; F02.80 Dementia in other diseases classified elsewhere, unspecified severity, without behavioral disturbance, psychotic disturbance, mood disturbance, and anxiety; I10 Essential (primary) hypertension; E03.9 Hypothyroidism, unspecified; N40.0 Benign prostatic hyperplasia without lower urinary tract symptoms; E83.52 Hypercalcemia; K59.09 Other constipation; D72.829 Elevated white blood cell count, unspecified; Z85.828 Personal history of other malignant neoplasm of skin; Z90.89 Acquired absence of other organs; Z98.890 Other specified postprocedural states; Z95.0 Presence of cardiac pacemaker
CPT/HCPCS: 36415; 70450; 71045; 72125; 80048; 80053; 81003; 81015; 82553; 83605; 83880; 84145; 84439; 84443; 84484; 85025; 87086; 93005; 93306; 94760; 96372; J0696; J1650; J2060; J7050

== ENCOUNTER 2019-10-07 21:16 | Emergency (ER) | payer MEDICARE ==
[2019-10-07 22:09] LABS: #Basophils 0.2 thou/uL (0.0-0.2); #Eosinphils 0.4 thou/uL (0.0-0.7); #Lymphocytes 2.4 thou/uL (1.20-3.40); #Monocytes 0.8 thou/uL (0.11-0.59); #Neutrophils 4.9 thou/uL (1.40-6.50); %Basophils 1.8 % (0.0-1.0); %Eosinophils 4.3 % (0.0-10.0); %Lymphocytes 28.2 % (21.0-51.0); %Monocytes 8.8 % (0.0-10.0); %Neutrophils 56.9 % (42.0-75.0); Hemoglobin 14.2 g/dL (14.0-18.0); Mean Corpuscular Hemoglobin 31.3 pg (27.0-31.0); Mean Corpuscular Volume 89.5 fL (78.0-98.0); Mean Platelet Volume 7.1 fL (7.4-10.4); Platelet Count 164 thou/uL (130-400); RBC Distribution Width 12.6 % (11.5-14.5); Red Blood Cell (RBC) Count 4.53 mill/uL (4.70-6.10); White Blood Cell (WBC) Count 8.6 thou/uL (4.8-10.8)
[2019-10-07 22:30] LABS: Anion Gap 16 mmol/L (10-20); BUN (Urea Nitrogen) 19 mg/dL (8.4-25.7); Calc. Creatinine Clearance 0 mL/min (70-130); Calcium 9.5 mg/dL (7.8-10.44); Carbon Dioxide 22 mmol/L (23-31); Chloride 105 mmol/L (98-107); Estimated GFR-MDRD 59; Glucose 85 mg/dL (83-110); Potassium 3.5 mmol/L (3.5-5.1); Sodium 139 mmol/L (136-145)
== END 2019-10-08 00:58 | disposition home or self-care (01) ==
LOC: ERS 21:16
DX: R42 Dizziness and giddiness (principal); E05.90 Thyrotoxicosis, unspecified without thyrotoxic crisis or storm; I48.91 Unspecified atrial fibrillation; G30.9 Alzheimer's disease, unspecified; F02.80 Dementia in other diseases classified elsewhere, unspecified severity, without behavioral disturbance, psychotic disturbance, mood disturbance, and anxiety
CPT/HCPCS: 36415; 80048; 84484; 85025; 93005; 96360

== ENCOUNTER 2019-12-17 13:28 | Emergency (ER) | payer MEDICARE ==
[2019-12-17] MEDS ORDERED: Ondansetron ODT 4 MG TAB ONE (14:19)
[2019-12-17 14:21] LABS: #Eosinphils 0.4 thou/uL (0.0-0.7); #Lymphocytes 1.4 thou/uL (1.20-3.40); #Monocytes 0.6 thou/uL (0.11-0.59); #Neutrophils 5.4 thou/uL (1.40-6.50); %Basophils 0.6 % (0.0-1.0); %Eosinophils 4.9 % (0.0-10.0); %Lymphocytes 17.5 % (21.0-51.0); %Monocytes 7.4 % (0.0-10.0); %Neutrophils 69.6 % (42.0-75.0); Hemoglobin 12.5 g/dL (14.0-18.0); Mean Corpuscular HGB CONC 34.6 g/dL (32.0-36.0); Mean Corpuscular Hemoglobin 31.2 pg (27.0-31.0); Mean Corpuscular Volume 90.1 fL (78.0-98.0); Mean Platelet Volume 7.9 fL (7.4-10.4); Platelet Count 158 thou/uL (130-400); RBC Distribution Width 12.4 % (11.5-14.5); Red Blood Cell (RBC) Count 4.01 mill/uL (4.70-6.10); White Blood Cell (WBC) Count 7.8 thou/uL (4.8-10.8)
[2019-12-17 14:44] LABS: ALT (SGPT) Less than 7 U/L (8-55); AST (SGOT) 11 U/L (5-34); Albumin 3.9 g/dL (3.4-4.8); Alkaline Phosphatase 59 U/L (40-110); Anion Gap 12 mmol/L (10-20); BUN (Urea Nitrogen) 19 mg/dL (8.4-25.7); Bilirubin, Total 0.9 mg/dL (0.2-1.2); Calc. Creatinine Clearance 0 mL/min (70-130); Calcium 8.9 mg/dL (7.8-10.44); Carbon Dioxide 25 mmol/L (23-31); Chloride 104 mmol/L (98-107); Estimated GFR-MDRD 66; Globulin 2.4 g/dL (2.4-3.5); Glucose 119 mg/dL (83-110); Lipase 57 U/L (8-78); Potassium 3.8 mmol/L (3.5-5.1); Protein, Total 6.3 g/dL (5.8-8.1); Sodium 137 mmol/L (136-145)
--- NOTE | 2019-12-17 14:51 | RAD ---
PORTABLE CHEST: History: Altered mental status. Syncope. Comparison: 09-10-18 FINDINGS: Heart size is within normal limits. There are atherosclerotic changes of the aorta. Pacer is present. Lungs are clear of any infiltrative process. Scoliotic change to the spine is noted. IMPRESSION: No active intrathoracic disease. POS: [facility]
[2019-12-17 16:03] LABS: Bacteria/HPF None Seen HPF (None Seen); Bilirubin Negative (Negative); Blood, Urine Negative (Negative); Clarity Clear (Clear); Glucose, Urine (Dipstick) Normal (Negative); Leukocyte 25 Leu/uL (Negative); Mucous/LPF 2+ LPF (<2+); Nitrite Negative (Negative); Protein, Urine (Dipstick) 30 mg/dL (Neg-Trace); RBC/HPF 0-3 HPF (0-3); Squamous Epithelial None Seen HPF (0-3); Urobilinogen 6 mg/dL (Less than 2); WBC/HPF 0-3 HPF (0-3)
== END 2019-12-17 17:22 | disposition home or self-care (01) ==
LOC: ERS 13:28
DX: R11.0 Nausea (principal); G30.9 Alzheimer's disease, unspecified; E05.90 Thyrotoxicosis, unspecified without thyrotoxic crisis or storm; I48.91 Unspecified atrial fibrillation
CPT/HCPCS: 36415; 71045; 80053; 81003; 81015; 83690; 84484; 85025; 93005; 94760; Q0162

== ENCOUNTER 2020-02-01 22:08 | Emergency (ER) | payer MEDICARE ==
--- NOTE | 2020-02-01 23:14 | RAD ---
Exam: XR Foot Rt 3 View STANDARD HISTORY: Right foot pain. Patient fell and injured right foot. COMPARISON: None FINDINGS: There is mild osteoarthritis involving the first metatarsal phalangeal joint. 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 No acute fracture, dislocation, or other acute osseous abnormality is identified. IMPRESSION: No acute osseous abnormality is identified.
== END 2020-02-02 00:15 | disposition home or self-care (01) ==
LOC: ERS 22:08
DX: L03.115 Cellulitis of right lower limb (principal); E05.90 Thyrotoxicosis, unspecified without thyrotoxic crisis or storm; I48.91 Unspecified atrial fibrillation; G30.9 Alzheimer's disease, unspecified; F02.80 Dementia in other diseases classified elsewhere, unspecified severity, without behavioral disturbance, psychotic disturbance, mood disturbance, and anxiety